=== PATIENT | male | born 1940 | race Caucasian/White ===

== ENCOUNTER 2023-06-26 17:40 | Inpatient (IN) ==
--- NOTE | 2023-06-26 20:00 | EKG ---
Test Reason : weakness Blood Pressure : */* mmHG Vent. Rate : 60 BPM Atrial Rate : 60 BPM P-R Int : 276 ms QRS Dur : 132 ms QT Int : 448 ms P-R-T Axes : * -55 73 degrees QTc Int : 448 ms Atrial-paced rhythm with prolonged AV conduction Left axis deviation Nonspecific intraventricular block Abnormal ECG No previous ECGs available Confirmed by Sachin Figueroa ([id number]) on 06/27/2023 8:13:50 AM Referred By: Confirmed By: Sachin Figueroa
[2023-06-26 20:05] LABS: LYMPHOCYTES # (AUTO) 0.1 X10^3/uL (1.3-2.9); MEAN CORPUSCULAR HGB CONC 33.8 g/dL (33.0-35.0); MONOCYTES # (AUTO) 0.3 x10^3/uL (0.3-0.8); MONOCYTES % (AUTO) 10.3 % (0.0-13.0); NEUTROPHILS # (AUTO) 2.5 x10^3/uL (2.2-4.8); RED CELL DISTRIBUTION WIDTH 17.7 % (11.6-16.5)
[2023-06-26 20:08] LABS: BASOPHILS % (AUTO) 0.1 % (0.2-1.0); EOSINOPHILS % (AUTO) 0.9 % (0.9-2.9); MEAN CORPUSCULAR VOLUME 94.6 fL (80.0-100.0); MEAN PLATELET VOLUME 6.5 fL (7.4-11.0); NEUTROPHILS % (AUTO) 83.7 % (42.0-75.0); PLATELET COUNT 152 X10^3/uL (150.0-450.0); RED BLOOD COUNT 2.02 X10^6/uL (4.7-6.0)
[2023-06-26 20:15] LABS: INR 1.22 (0.8-1.3)
[2023-06-26 20:22] LABS: ALANINE AMINOTRANSFERASE 43 Units/L (12-78); ALBUMIN 3.1 g/dL (3.4-5.0); ALKALINE PHOSPHATASE 64 Units/L (46-116); ASPARTATE AMINO TRANSFERASE 54 Units/L (15-37); BLOOD UREA NITROGEN 26 mg/dL (7-18); CALCIUM 7.4 mg/dL (8.5-10.1); CARBON DIOXIDE 32.4 mmol/L (21-32); CHLORIDE 94 mmol/L (98-107); COR CA(FOR HYPOALB) 8.1 mg/dL (8.5-10.1); COR NA(FOR HYPERGLY) 126 mmol/L (136-145); CREATINE KINASE 470 Units/L (39-308); CREATININE 1.07 mg/dL (0.70-1.30); GLUCOSE 111 mg/dL (65-99); POTASSIUM 4.1 mmol/L (3.5-5.1); SODIUM 126 mmol/L (136-145); TOTAL PROTEIN 5.7 g/dL (6.4-8.2); eGFR NON BLACK RACES > 60 (>60)
--- NOTE | 2023-06-26 20:23 | RAD ---
EXAM:CHEST, 1 VIEWHISTORY:WEAKNESS;COMPARISON:None. r.br.br.br obtained.FINDINGS:There are multiple EKG leads and wires seen overlying the patient. The patient is status post median sternotomy. There is a permanent pacemaker overlying the left chest wall with the proximal lead in the right atrium and distal lead in the right ventricle. The heart is normal in size. There is no focal infiltrate. There is no effusion. There is no pneumothorax. The osseous structures are intact. There is anterior cervical interbody fusion of 2 levels of the lower cervical spine and upper thoracic spine. There are surgical clips along the right greater than left neck area.IMPRESSION:No focal infiltrate or effusion.Permanent pacemaker in-situ.Status post median sternotomy.THIS IS AN ELECTRONICALLY VERIFIED FINAL LIXOOT2706/26/2023 8:20 PM - Electronically signed by Razia Juares MD
[2023-06-26 20:26] LABS: HEMATOCRIT 19.1 % (42.0-54.0); HEMOGLOBIN 6.5 g/dL (13.5-18.0)
--- NOTE | 2023-06-26 20:43 | DR.EXTPAIN ---
HPI Time seen Time Seen by Provider: 06/26/23 20:34 PCP Primary Care Physician: RONNIE Complaint/Symptoms Chief Complaint:: PATIENT'S FAMILY C/O PATIENT HAS HAD INCREASED WEAKNESS AND NEEDS A BLOOD TRANSFUSION. PATTINETS HGB NOTED TO BE 6.5 ON THIS DATE FROM PREVIOUS LAB WORK. PATIENT IS ALSO NOTED TO HAVE BILATERAL LOWER EXT EDEMA +4 PITTING. PATIENT IS NOTED TO BE PALE. COVID-19 Coronavirus risk:travel/contact w/high risk person: No Has patient experienced Coronavirus symptoms: No Nurses notes reviewed Nurses Notes Review: Yes Source History Provided: Patient and Family Member Mode of arrival Mode of Arrival: Wheelchair Timing Onset of Chief Complaint: 06/24/23 Context History of: None Associated signs and symptoms Associated Signs and Symptoms: Swelling PMH PMH Past Medical History: Yes Past Medical History: Alzheimers, Anemia, CHF, CVA, Dementia, Depression, GERD and Hypertension Past Medical History Comment: PROSTATE CA, THYROID CA, BLADDER CA Past Surgical History: Yes Surgical History: CABG/Valve Surgery, Cholecystectomy, Ectopic , Ortho Surgery and Thyroidectomy Past Surgical History Comment: PACE MAKER, WATCHMAN'S PROCEDURE, SHOULDER (BILATERAL), KNEE REPLACEMENT, BLADDER SURGERY TO REMOVE CA, Family History History of Family Medical Conditions: Yes Family Medical History: Diabetes Mellitus, [place], Coronary Artery Disease, Heart Failure and Hypertension Social History Does any household member use tobacco: No Alcohol Use: None Do you use any recreational Drugs:: No Lives With: Spouse Lives Where: Home Travel Risk Coronavirus risk:travel/contact w/high risk person: No Has patient experienced Coronavirus symptoms: No Infectious screening In the last 2 months have you had wt loss of >10#?: NO Have you had fever, night sweats or hemotysis?: No Have you traveled outside the country in the last 6 months?: No Isolation: Standard ROS Review of Systems Constitutional: See HPI and Weakness Cardiovascular: See HPI and Edema PE Vital Signs Vitals: Vital Signs Temperature 98.3 F Pulse Rate 60 Respiratory Rate 20 Blood Pressure 109/61 O2 Sat by Pulse Oximetry 100 General Limitations: No Limitations General Appearance: Alert and In No Apparent Distress Head Head Exam: Normal Inspection, Atraumatic and Normocephalic Eyes Eye exam: Normal Appearance, PERRL and EOMI ENT ENT Exam: Normal Exam Neck Neck Exam: Normal Inspection Chest Chest Inspection: Normal Inspection Respiratory Respiratory Exam: Normal Lung Sounds Bilat Cardiovascular Cardiovascular Exam: Regular Rate Abdominal Exam Abdominal Exam: Normal Inspection, Normal Bowel Sounds and Soft Extremities Extremities Exam: Full ROM and Edema Back Back Exam: Normal Inspection Neurological Neurological Exam: Alert, Oriented X3, CN II-XII Intact, Normal Gait and Reflexes Normal Psychiatric Psychiatric Exam: Normal Affect and Normal Mood Skin Skin Exam: Warm, Dry and Other (Ecchymosis posterior right thigh) COURSE Treatment Treatment: Labs, CXR, EKG, IVFs, blood transfusion, admission Reevaluation 1st: Improved ROR Labs Reviewed Laboratory Results Reviewed?: Yes 06/26/23 19:53 06/26/23 19:53 Laboratory: WBC 3.0 X10^3/uL (3.6-10.0) L 06/26/23 19:53 RBC 2.02 X10^6/uL (4.7-6.0) L 06/26/23 19:53 Hgb 6.5 g/dL (13.5-18.0) L* 06/26/23 19:53 Hct 19.1 % (42.0-54.0) L* 06/26/23 19:53 MCV 94.6 fL (80.0-100.0) 06/26/23 19:53 MCH 32.0 pg (27.0-34.0) 06/26/23 19:53 MCHC 33.8 g/dL (33.0-35.0) 06/26/23 19:53 RDW 17.7 % (11.6-16.5) H 06/26/23 19:53 Plt Count 152 X10^3/uL (150.0-450.0) 06/26/23 19:53 MPV 6.5 fL (7.4-11.0) L 06/26/23 19:53 Neut % (Auto) 83.7 % (42.0-75.0) H 06/26/23 19:53 Lymph % (Auto) 5.0 % (21.0-51.0) L 06/26/23 19:53 [place] % (Auto) 10.3 % (0.0-13.0) 06/26/23 19:53 Eos % (Auto) 0.9 % (0.9-2.9) 06/26/23 19:53 Baso % (Auto) 0.1 % (0.2-1.0) L 06/26/23 19:53 Neut # (Auto) 2.5 x10^3/uL (2.2-4.8) 06/26/23 19:53 Lymph # (Auto) 0.1 X10^3/uL (1.3-2.9) L 06/26/23 19:53 [place] # (Auto) 0.3 x10^3/uL (0.3-0.8) 06/26/23 19:53 Eos # (Auto) 0.0 x10^3/uL (0.0-0.2) 06/26/23 19:53 Baso # (Auto) 0.0 X10^3/uL (0.0-0.1) 06/26/23 19:53 Absolute Nucleated RBC 0.1 /100WBC 06/26/23 19:53 PT 15.2 SECONDS (11.8-14.3) 06/26/23 19:53 INR Target Range - 06/26/23 19:53 INR 1.22 (0.8-1.3) 06/26/23 19:53 APTT 67.7 SECONDS (22.9-36.5) H 06/26/23 19:53 PTT Comment - 06/26/23 19:53 Sodium 126 mmol/L (136-145) L 06/26/23 19:53 Corrected Sodium 126 mmol/L (136-145) L 06/26/23 19:53 Potassium 4.1 mmol/L (3.5-5.1) 06/26/23 19:53 Chloride 94 mmol/L (98-107) L 06/26/23 19:53 Carbon Dioxide 32.4 mmol/L (21-32) H 06/26/23 19:53 BUN 26 mg/dL (7-18) H 06/26/23 19:53 Creatinine 1.07 mg/dL (0.70-1.30) 06/26/23 19:53 Est GFR (MDRD) Af Amer > 60 (>60) 06/26/23 19:53 Est GFR (MDRD) Non-Af > 60 (>60) 06/26/23 19:53 Glucose 111 mg/dL (65-99) H 06/26/23 19:53 Calcium 7.4 mg/dL (8.5-10.1) L 06/26/23 19:53 Corrected Calcium 8.1 mg/dL (8.5-10.1) L 06/26/23 19:53 Total Bilirubin 0.60 mg/dL (0.2-1.0) 06/26/23 19:53 AST 54 Units/L (15-37) H 06/26/23 19:53 ALT 43 Units/L (12-78) 06/26/23 19:53 Alkaline Phosphatase 64 Units/L (46-116) 06/26/23 19:53 Creatine Kinase 470 Units/L (39-308) H 06/26/23 19:53 Troponin I High Sens 11.2 ng/L (4.0-60.0) 06/26/23 19:53 Total Protein 5.7 g/dL (6.4-8.2) L 06/26/23 19:53 Albumin 3.1 g/dL (3.4-5.0) L 06/26/23 19:53 Globulin 2.6 g/dL (2.5-4.5) 06/26/23 19:53 Albumin/Globulin Ratio 1.2 Ratio (1.1-2.1) 06/26/23 19:53 Stool Occult Blood Positive (NEGATIVE) A 06/26/23 20:35 Blood Type A POSITIVE 06/26/23 19:56 Antibody Screen Negative 06/26/23 19:53 XRAY XRAY Interpreted by: Radiologist Opioid Opioid Risk Tool Age (Ambrosio box if 16-45): No History of Preadolescent Sexual Abuse: No Total: 0 Total Score Risk Category: Low Risk Copyright: Tristin CLARK predicting aberrant behaviors Discharge Plan Diagnosis Discharge Problem: Anemia, Acute upper GI bleed, Generalized muscle weakness Discharge Plan Patient Disposition: ADMITTED INPATIENT Condition: Stable Prescriptions: No Action olanzapine [Zyprexa] 5 mg Tablet 5 mg PO QHS PRN (Reason: Agitation) dextromethorphan-guaifenesin [Robitussin-DM] 10-100 mg/5 mL Syrup 10 ml PO Q4-6H PRN aspirin [Aspir-81] 81 mg Tablet,Delayed Release (Dr/Ec) 81 mg PO QDAY simvastatin [Zocor] 40 mg Tablet 40 mg PO QHS levothyroxine [Synthroid] 75 mcg Tablet 75 mcg PO QDAY tamsulosin [Flomax] 0.4 mg Capsule 0.4 mg PO QHS pantoprazole [Protonix] 40 mg Tablet,Delayed Release (Dr/Ec) 40 mg PO QDAY ferrous sulfate 325 mg (65 mg iron) Tablet 325 mg PO QDAY Maalox 225-200 mg/5 mL Suspension 30 ml PO Q4H PRN ibuprofen [Motrin] 400 mg Tablet 400 mg PO Q8H furosemide [Lasix] 20 mg Tablet 20 mg PO QAM metoprolol succinate [Toprol XL] 25 mg Tablet Extended Release 24 Hr 12.5 mg PO QDAY oxybutynin chloride [Ditropan] 5 mg Tablet 10 mg PO QDAY ondansetron [Zofran ODT] 4 mg Tablet,Disintegrating 4 mg PO Q6H PRN sertraline [Zoloft] 50 mg Tablet 75 mg PO QDAY aripiprazole [Abilify] 5 mg Tablet 5 mg PO QDAY memantine [Namenda] 5 mg Tablet 5 mg PO BID acetaminophen [Tylenol] 325 mg Capsule 650 mg PO Q4H PRN magnesium hydroxide [Milk of Magnesia] 400 mg/5 mL Suspension 30 ml PO BID PRN Health Concerns: Post Hospitalization: new medications and changes needed to prevent readmission or further decline. Pt educated and given instructions on all concerns. Plan of Treatment: Continue with present treatment and follow up plan. Pt is to keep follow up appointment as instructed and take medications as ordered. Follow ups/Referrals Follow ups/Referrals: NFD,None [Primary Care Provider] - 3 days
[2023-06-26] MEDS ORDERED: NS 1,000 ML IV 1,000 ML ONE (21:14)
[2023-06-26] MEDS: NS 1,000 ML IV 1,000 ML IV SCH (21:30)
[2023-06-26] MEDS ORDERED: TYLENOL 325 MG TAB PO PRN (21:51)
[2023-06-26] MEDS ORDERED: BENADRYL INJ 50 MG VIAL IVP PRN (21:51)
[2023-06-26] MEDS ORDERED: TYLENOL SUPP 650 MG PR PRN (21:51)
[2023-06-26] MEDS ORDERED: NS 500 ML IV 500 ML IV ONE (21:51)
[2023-06-26 22:47] VITALS: BMI 20.9
[2023-06-27 07:04] LABS: BASOPHILS % (AUTO) 0 % (0.2-1.0); EOSINOPHILS # (AUTO) 0.1 x10^3/uL (0.0-0.2); EOSINOPHILS % (AUTO) 2.6 % (0.9-2.9); HEMATOCRIT 21.9 % (42.0-54.0); HEMOGLOBIN 7.5 g/dL (13.5-18.0); LYMPHOCYTES # (AUTO) 0.3 X10^3/uL (1.3-2.9); LYMPHOCYTES % (AUTO) 11.3 % (21.0-51.0); MEAN CORPUSCULAR HEMOGLOBIN 31.9 pg (27.0-34.0); MEAN CORPUSCULAR HGB CONC 34.2 g/dL (33.0-35.0); MEAN CORPUSCULAR VOLUME 93.3 fL (80.0-100.0); MEAN PLATELET VOLUME 6.4 fL (7.4-11.0); MONOCYTES # (AUTO) 0.4 x10^3/uL (0.3-0.8); MONOCYTES % (AUTO) 13.9 % (0.0-13.0); NEUTROPHILS # (AUTO) 1.9 x10^3/uL (2.2-4.8); NEUTROPHILS % (AUTO) 72.2 % (42.0-75.0); PLATELET COUNT 125 X10^3/uL (150.0-450.0); RED BLOOD COUNT 2.35 X10^6/uL (4.7-6.0); RED CELL DISTRIBUTION WIDTH 16.5 % (11.6-16.5); WHITE BLOOD COUNT 2.6 X10^3/uL (3.6-10.0)
[2023-06-27 07:13] LABS: ALANINE AMINOTRANSFERASE 33 Units/L (12-78); ALBUMIN 2.5 g/dL (3.4-5.0); ALKALINE PHOSPHATASE 54 Units/L (46-116); ASPARTATE AMINO TRANSFERASE 43 Units/L (15-37); BLOOD UREA NITROGEN 23 mg/dL (7-18); CARBON DIOXIDE 30.7 mmol/L (21-32); CHLORIDE 99 mmol/L (98-107); COR CA(FOR HYPOALB) 8.2 mg/dL (8.5-10.1); CREATININE 0.86 mg/dL (0.70-1.30); GLUCOSE 85 mg/dL (65-99); POTASSIUM 3.9 mmol/L (3.5-5.1); SODIUM 131 mmol/L (136-145); TOTAL PROTEIN 4.7 g/dL (6.4-8.2); eGFR NON BLACK RACES > 60 (>60)
[2023-06-27] MEDS: PEPCID 20 MG VIAL 20 MG in NS 50 ML IV 50 ML IV SCH ×2 (10:27→21:22)
[2023-06-27] MEDS: PROTONIX INJ 40 MG VIAL IVP SCH ×2 (10:27→21:22)
[2023-06-27] MEDS: NS 1,000 ML IV 1,000 ML IV SCH (11:00)
[2023-06-27] MEDS ORDERED: NS 250 ML IV 250 ML IV ONE (11:34)
--- NOTE | 2023-06-27 13:02 | DR.H&P ---
H&P - History & Physical for Day of: H&P Date: 06/26/23 - Chief Complaint Chief Complaint: WEAKNESS, FATIGUE, LOW HEMOGLOBIN - History of Present Illness History of Present Illness: IS A 83 YEAR OLD WHITE MALE, PATIENT OF . HE HAS A PMH OF ALZHEIMERS, ANEMIA, CHF, CVA, DEMENTIA, DEPRESSION, GERD, HTN, PROSTATE CANCER, THYROID CANCER, AND BLADDER CANCER. PAST SURGICAL HISTORY INCLUDES: CABG, CHOLECYSTECTOMY, THYROIDECTOMY, PACEMAKER, WATCHMANS PROCEDURE, BILATERAL SHOULDER SURGERY, KNEE REPLACEMENT, BLADDER SURGERY TO REMOVE CANCER. HE PRESENTED TO THE HOSPITAL WITH COMPLAINTS OF INCREASED WEAKNESS, FATIGUE, AND LOWER EXTREMITY EDEMA. ADDITIONALLY, PATIENT REPORTS THAT HE WAS INSTRUCTED TO COME TO THE HOSPITAL FOR FURTHER EVALUATION DUE TO HIS HEMOGLOBIN BEING 6.5 ON LABS THAT WERE OBTAINED EARLIER IN THE DAY. ON ARRIVAL TO THE HOSPITAL, HIS VITALS WERE: 98.3-60-20-100%-109/61. LABS WERE OBTAINED. WBC 3.0, RBC 2.02, HGB 6.5, HCT 19.1, PLT COUNT 152, SODIUM 126, POTASSIUM 4.1, CHLORIDE 94, BUN 26, CREATININE 1.07, GLUCOSE 111, CALCIUM 7.4, TOTAL BILI 0.60, AST 54, ALT 43, ALK PHOS 64, CREATINE KINASE 470, TROPONIN 11.2, TOTAL PROTEIN 5.7, ALBUMIN 3.1. STOOL WAS POSITIVE FOR OCCULT BLOOD. A CHEST XRAY WAS OBTAINED AND REVEALED: No focal infiltrate or effusion. Permanent pacemaker in-situ. Status post median sternotomy. EKG OBTAINED AND REVEALED: ATRIAL PACED RHYTHM WITH HR 60 BPM. DECISION WAS MADE TO ADMIT PATIENT TO THE HOSPITAL INPATIENT STATUS DUE TO ANEMIA, GI BLEED, HYPONATREMIA. ON ADMISSION, SHE WAS STARTED ON NORMAL SALINE AT 75 ML/HR, PEPCID 20MG IV Q12H, PROTONIX 40MG IV BID, TYLENOL 650MG AND BENADRYL 25MG IV PRN FOR BLOOD TRANSFUSIONS. WE WILL RESUME HIS HOME MEDICATIONS OF MILK OF MAG PRN, ROBITUSSIN PRN, ZYPREXA PRN, ZOFRAN PRN, SYNTHROID, FLOMAX, ZOCOR, DITROPAN, FERROUS SULFATE, ABILIFY, ZOLOFT, TOPROL XL, AND NAMENDA. WE TRANSFUSED TWO UNITS OF PACKED RED BLOOD CELLS. ON MORNING LABS, HIS HEMOGLOBIN HAD ONLY INCREASED TO 7.5. WE WILL TRANSFUSE TWO ADDITIONAL UNITS OF PACKED RED BLOOD CELLS. WE WILL CONSULT , GENERAL SURGEON, FOR POSSIBLE ENDOSCOPY. OTHERWISE, WE WILL FOLLOW UP WITH AM LABS AND CONTINUE TO MONITOR. TIME SPENT ON CLINICAL ASSESSMENT, REVIEWING LABS AND IMAGING, DECISION MAKING, AND DOCUMENTATION GREATER THAN 75 MINUTES. - Past Medical History Past Medical History: Hypertension, Alzheimers, Dementia, Depression, Anemia, CVA, GERD, CHF - Past Surgical History Surgical History: CABG/Valve Surgery, Cholecystectomy, Ortho Surgery, Thyroidectomy - Family History Family Medical History: Diabetes Mellitus, Cancer, Hypertension - Social History Does patient currently use any type of tobacco product: No Have you used tobacco products in the last 12 months: No Type of Tobacco Use: None Does any household member use tobacco: No Alcohol Use: None Drug Use: None - Review of Systems Constitutional: Weakness Eyes: No Symptoms Reported ENT: No Symptoms Reported Respiratory: No Symptoms Reported Cardiovascular: Edema (BLE 2+ ) Gastrointestinal: No Symptoms Reported Genitourinary: No Symptoms Reported Musculoskeletal: No Symptoms Reported Skin: No Symptoms Reported Neurological: Weakness - Physical Exam Vital Signs: Vital Signs Temperature 97.7 F Pulse Rate 62 Pulse Rate 63 Pulse Rate 60 Pulse Rate 62 Pulse Rate 62 Pulse Rate 61 Pulse Rate 61 Pulse Rate 61 Pulse Rate 59 Pulse Rate 60 Respiratory Rate 12 Respiratory Rate 12 Respiratory Rate 11 Respiratory Rate 12 Respiratory Rate 15 Respiratory Rate 12 Respiratory Rate 10 Respiratory Rate 11 Respiratory Rate 11 Respiratory Rate 13 Blood Pressure 99/57 Blood Pressure 102/64 Blood Pressure 106/61 Blood Pressure 101/60 Blood Pressure 103/61 Blood Pressure 106/59 Blood Pressure 97/60 Blood Pressure 116/61 Blood Pressure 103/58 Blood Pressure 110/61 O2 Sat by Pulse Oximetry 100 O2 Sat by Pulse Oximetry 100 O2 Sat by Pulse Oximetry 100 O2 Sat by Pulse Oximetry 100 O2 Sat by Pulse Oximetry 98 O2 Sat by Pulse Oximetry 100 O2 Sat by Pulse Oximetry 100 O2 Sat by Pulse Oximetry 100 O2 Sat by Pulse Oximetry 100 O2 Sat by Pulse Oximetry 100 Oriented: Normal Eyes: Normal Ear: Normal Nose: Normal Throat: Normal Respiratory: Diminished Throughout Cardiovascular: Edema (BILATERAL LOWER EXTREMITY 2+ PITTING EDEMA ) : Normal Auscultation: Bowel Sounds: Normal Palpation: Normal Tenderness: Normal Skin: Normal Musculoskeletal: Normal Psychiatric: Normal Mood Description: Calm Affect: Normal Speech Pattern: Clear - Assessment/Plan (1) Anemia Qualifiers: Anemia type: iron deficiency Iron deficiency anemia type: chronic blood loss Qualified Code(s): D50.0 - Iron deficiency anemia secondary to blood loss (chronic) Status: Acute Plan: ADMIT, TRANSFUSE PACKED RED BLOOD CELLS, CONSULT GI, NORMAL SALINE AT 75 ML/HR, PEPCID 20MG IV Q12H, PROTONIX 40MG IV BID, TYLENOL 650MG AND BENADRYL 25MG IV PRN FOR BLOOD TRANSFUSIONS. RESUME HOME MEDS (2) Acute upper GI bleed Status: Acute (3) Generalized muscle weakness Status: Acute (4) Dementia Qualifiers: Dementia type: Alzheimer's Alzheimer's disease onset: unspecified onset Dementia severity: unspecified severity Dementia behavioral or psychological symptom: unspecified whether behavioral, psychotic, or mood disturbance or anxiety Qualified Code(s): G30.9 - Alzheimer's disease, unspecified; F02.80 - Dementia in other diseases classified elsewhere, unspecified severity, without behavioral disturbance, psychotic disturbance, mood disturbance, and anxiety Status: Chronic Plan: RESUME NAMENDA (5) Depression Qualifiers: Depression Type: major depressive disorder Major depression recurrence: recurrent Active/Remission status: remission status unspecified Qualified Code(s): F33.9 - Major depressive disorder, recurrent, unspecified Status: Chronic Plan: RESUME ZYPREXA AND ABILIFY (6) Hypertension Qualifiers: Hypertension type: primary hypertension Qualified Code(s): I10 - Essential (primary) hypertension Status: Chronic Plan: RESUME TOPROL (7) Hypothyroidism Qualifiers: Hypothyroidism type: acquired Qualified Code(s): E03.9 - Hypothyroidism, unspecified Status: Chronic Plan: RESUME SYNTHROID (8) History of prostate cancer Status: Acute Plan: RESUME FLOMAX AND DITROPAN (9) Hyperlipidemia Qualifiers: Hyperlipidemia type: mixed hyperlipidemia Qualified Code(s): E78.2 - Mixed hyperlipidemia Status: Acute Plan: RESUME ZOCOR - Allergies Allergies/Adverse Reactions: Allergies Allergy/AdvReac Type Severity Reaction Status Date / Time No Known Allergies Allergy Verified 06/26/23 22:29 - Medications Home Medications: Home Medications Medication Instructions Recorded Confirmed acetaminophen 325 mg capsule 650 mg PO Q4H PRN 06/26/23 06/26/23 (Tylenol) aluminum-magnesium hydroxide 225 30 ml PO Q4H PRN 06/26/23 06/26/23 mg-200 mg/5 mL oral suspension aripiprazole 5 mg tablet (Abilify) 5 mg PO QDAY 06/26/23 06/26/23 aspirin 81 mg tablet,delayed 81 mg PO QDAY 06/26/23 06/26/23 release dextromethorphan-guaifenesin 10 10 ml PO Q4-6H PRN 06/26/23 06/26/23 mg-100 mg/5 mL oral syrup ferrous sulfate 325 mg (65 mg 325 mg PO QDAY 06/26/23 06/26/23 iron) tablet furosemide 20 mg tablet (Lasix) 20 mg PO QAM 06/26/23 06/26/23 ibuprofen 400 mg tablet 400 mg PO Q8H 06/26/23 06/26/23 levothyroxine 75 mcg tablet 75 mcg PO QDAY 06/26/23 06/26/23 (Synthroid) magnesium hydroxide 400 mg/5 mL 30 ml PO BID PRN 06/26/23 06/26/23 oral suspension (Milk of [place]) memantine 5 mg tablet (Namenda) 5 mg PO BID 06/26/23 06/26/23 metoprolol succinate 25 mg 12.5 mg PO QDAY 06/26/23 06/26/23 tablet,extended release 24 hr (Toprol XL) olanzapine 5 mg tablet (Zyprexa) 5 mg PO QHS PRN Agitation 06/26/23 06/26/23 ondansetron 4 mg disintegrating 4 mg PO Q6H PRN 06/26/23 06/26/23 tablet oxybutynin chloride 5 mg tablet 10 mg PO QDAY 06/26/23 06/26/23 pantoprazole 40 mg tablet,delayed 40 mg PO QDAY 06/26/23 06/26/23 release (Protonix) sertraline 50 mg tablet (Zoloft) 75 mg PO QDAY 06/26/23 06/26/23 simvastatin 40 mg tablet (Zocor) 40 mg PO QHS 06/26/23 06/26/23 tamsulosin 0.4 mg capsule (Flomax) 0.4 mg PO QHS 06/26/23 06/26/23
[2023-06-27] MEDS ORDERED: ZOFRAN ODT PO PRN (14:17)
[2023-06-27] MEDS ORDERED: MILK OF MAGNESIA PO PRN (14:17)
[2023-06-27] MEDS ORDERED: ROBITUSSIN DM PO PRN (14:17)
[2023-06-27] MEDS: ABILIFY PO SCH (14:30)
[2023-06-27] MEDS ORDERED: ASPIRIN EC 81 MG PO SCH (15:00)
[2023-06-27] MEDS: DITROPAN TAB 5 MG PO SCH (15:00)
[2023-06-27] MEDS: FERROUS GLUCONATE PO SCH (15:00)
[2023-06-27] MEDS ORDERED: TOPROL XL PO SCH (15:00)
[2023-06-27] MEDS: ZOLOFT PO SCH (18:42)
[2023-06-27 20:31] LABS: HEMATOCRIT 27.7 % (42.0-54.0); HEMOGLOBIN 9.4 g/dL (13.5-18.0)
[2023-06-27] MEDS: NAMENDA TAB 10 MG PO SCH (21:21)
[2023-06-27] MEDS: FLOMAX PO SCH (21:21)
[2023-06-27] MEDS: ZOCOR TAB 40 MG PO SCH (21:22)
[2023-06-27] MEDS ORDERED: NS 50 ML IV 50 ML IV ONE (21:29)
[2023-06-28] MEDS: NS 1,000 ML IV 1,000 ML IV SCH ×2 (04:31→17:00)
[2023-06-28 05:34] LABS: BASOPHILS % (AUTO) 0.1 % (0.2-1.0); EOSINOPHILS # (AUTO) 0.1 x10^3/uL (0.0-0.2); HEMATOCRIT 27.3 % (42.0-54.0); HEMOGLOBIN 9.3 g/dL (13.5-18.0); LYMPHOCYTES # (AUTO) 0.3 X10^3/uL (1.3-2.9); LYMPHOCYTES % (AUTO) 10.9 % (21.0-51.0); MEAN CORPUSCULAR HEMOGLOBIN 31.4 pg (27.0-34.0); MEAN CORPUSCULAR VOLUME 92.6 fL (80.0-100.0); MEAN PLATELET VOLUME 6.5 fL (7.4-11.0); MONOCYTES # (AUTO) 0.3 x10^3/uL (0.3-0.8); MONOCYTES % (AUTO) 10.3 % (0.0-13.0); NEUTROPHILS # (AUTO) 2.1 x10^3/uL (2.2-4.8); NEUTROPHILS % (AUTO) 76.7 % (42.0-75.0); PLATELET COUNT 109 X10^3/uL (150.0-450.0); RED BLOOD COUNT 2.95 X10^6/uL (4.7-6.0); WHITE BLOOD COUNT 2.7 X10^3/uL (3.6-10.0)
[2023-06-28 05:48] LABS: ALANINE AMINOTRANSFERASE 27 Units/L (12-78); ALBUMIN 2.4 g/dL (3.4-5.0); ALKALINE PHOSPHATASE 50 Units/L (46-116); ASPARTATE AMINO TRANSFERASE 37 Units/L (15-37); BLOOD UREA NITROGEN 17 mg/dL (7-18); CALCIUM 6.7 mg/dL (8.5-10.1); CHLORIDE 99 mmol/L (98-107); CREATININE 0.69 mg/dL (0.70-1.30); GLUCOSE 73 mg/dL (65-99); POTASSIUM 3.7 mmol/L (3.5-5.1); SODIUM 130 mmol/L (136-145); TOTAL PROTEIN 4.3 g/dL (6.4-8.2); eGFR NON BLACK RACES > 60 (>60)
[2023-06-28] MEDS ORDERED: CONSULT PHARMACY - POTASSIUM & MAGNESIUM XX SCH ×2 (07:00)
[2023-06-28] MEDS ORDERED: SYNTHROID 75 mcg TAB PO SCH (09:00)
[2023-06-28] MEDS: ZOLOFT PO SCH (09:45)
[2023-06-28] MEDS: DITROPAN TAB 5 MG PO SCH (09:45)
[2023-06-28] MEDS: NAMENDA TAB 10 MG PO SCH ×2 (09:45→21:07)
[2023-06-28] MEDS: FERROUS GLUCONATE PO SCH (09:45)
[2023-06-28] MEDS: PROTONIX INJ 40 MG VIAL IVP SCH ×2 (09:45→21:07)
[2023-06-28] MEDS: PEPCID 20 MG VIAL 20 MG in NS 50 ML IV 50 ML IV SCH ×2 (09:45→21:06)
[2023-06-28] MEDS: ABILIFY PO SCH (09:45)
[2023-06-28] MEDS: K-RIDER 10 MEQ/NS 100 ML 10 MEQ/100 ML BAG IV SCH ×2 (10:00→11:00)
[2023-06-28 10:14] LABS: T4 (THYROXINE) 3.5 ug/dL (4.7-13.3)
--- NOTE | 2023-06-28 17:55 | PCM.PROG ---
Progress Note Progress Note for Day of Date of Exam: 06/28/23 Subjective Subjective: IS A 83 YEAR OLD WHITE MALE, PATIENT OF , ER ADMISSION WITH ACUTE GI BLEED. WHEN HE PRESENTED TO THE HOSPITAL WITH COMPLAINTS OF INCREASED WEAKNESS, FATIGUE, AND LOWER EXTREMITY EDEMA, PT HGB WAS 6.5. PT HAS POSITIVE OCCULT STOOL, SP TRANSFUSION PRBC. SR HAMMOND HAS BEEN CONSULTED FOR GI EVALUATION. PT IS CURRENTLY ON IV PROTONIX BID. HGB AT 9.3 THIS MORNING. PT DENIES ANY CHEST PAIN OR SOB THIS MORNING AT REST. PT DENIES ANY N/V/D THIS MORNING, BUT REPORTS HE HAS NOT ATE. LABS AND DIAGNOSTIC TESTS REVIEWED WITH PT AND FAMILY AT BEDSIDE. HE HAS A PMH OF ALZHEIMERS, ANEMIA, CHF, CVA, DEMENTIA, DEPRESSION, GERD, HTN, PROSTATE CANCER, THYROID CANCER, AND BLADDER CANCER. PAST SURGICAL HISTORY INCLUDES: CABG, CHOLECYSTECTOMY, THYROIDECTOMY, PACEMAKER, WATCHMANS PROCEDURE, BILATERAL SHOULDER SURGERY, KNEE REPLACEMENT, BLADDER SURGERY TO REMOVE CANCER. Past Medical Family Social History Allergies: Allergies No Known Allergies Allergy (Verified 06/26/23 22:29) Vital Signs and I&O's Vital Signs: Vital Signs Temperature 97.7 F Temperature 98 F Pulse Rate 60 Pulse Rate 60 Pulse Rate 61 Pulse Rate 60 Pulse Rate 66 Pulse Rate 60 Pulse Rate 60 Pulse Rate 60 Respiratory Rate 22 Respiratory Rate 11 Respiratory Rate 15 Respiratory Rate 17 Respiratory Rate 15 Respiratory Rate 18 Respiratory Rate 23 Blood Pressure 101/66 Blood Pressure 123/64 Blood Pressure 110/61 O2 Sat by Pulse Oximetry 100 O2 Sat by Pulse Oximetry 100 O2 Sat by Pulse Oximetry 100 O2 Sat by Pulse Oximetry 99 O2 Sat by Pulse Oximetry 99 O2 Sat by Pulse Oximetry 100 O2 Sat by Pulse Oximetry 100 O2 Sat by Pulse Oximetry 98 Intake and Output: Intake & Output 06/26/23 06/27/23 06/28/23 06/29/23 11:59 11:59 11:59 11:59 Intake Total 1555 / 1555 2874 / 2874 918 / 918 Output Total 600 / 600 650 / 650 Balance 1555 / 1555 2274 / 2274 268 / 268 Physical Exam Oriented: Normal Eyes: Normal Ear: Normal Nose: Normal Throat: Normal Respiratory: Diminished Cardiovascular: Edema (BILATERAL LOWER EXTREMITY 2+ PITTING EDEMA ) and Other (PACEMAKER PRESENT) : Normal Auscultation: Bowel Sounds: Normal Tenderness: Normal Skin: Normal Musculoskeletal: Normal Psychiatric: Normal Mood Description: Calm Affect: Normal Speech Pattern: Clear and Appropriate Laboratory and Diagnostics 06/28/23 04:51 06/28/23 04:51 Labs: Laboratory WBC 2.7 X10^3/uL (3.6-10.0) L 06/28/23 04:51 RBC 2.95 X10^6/uL (4.7-6.0) L 06/28/23 04:51 Hgb 9.3 g/dL (13.5-18.0) L 06/28/23 04:51 Hct 27.3 % (42.0-54.0) L 06/28/23 04:51 MCV 92.6 fL (80.0-100.0) 06/28/23 04:51 MCH 31.4 pg (27.0-34.0) 06/28/23 04:51 MCHC 34.0 g/dL (33.0-35.0) 06/28/23 04:51 RDW 16.0 % (11.6-16.5) 06/28/23 04:51 Plt Count 109 X10^3/uL (150.0-450.0) L 06/28/23 04:51 MPV 6.5 fL (7.4-11.0) L 06/28/23 04:51 Neut % (Auto) 76.7 % (42.0-75.0) H 06/28/23 04:51 Lymph % (Auto) 10.9 % (21.0-51.0) L 06/28/23 04:51 [place] % (Auto) 10.3 % (0.0-13.0) 06/28/23 04:51 Eos % (Auto) 2.0 % (0.9-2.9) 06/28/23 04:51 Baso % (Auto) 0.1 % (0.2-1.0) L 06/28/23 04:51 Neut # (Auto) 2.1 x10^3/uL (2.2-4.8) L 06/28/23 04:51 Lymph # (Auto) 0.3 X10^3/uL (1.3-2.9) L 06/28/23 04:51 [place] # (Auto) 0.3 x10^3/uL (0.3-0.8) 06/28/23 04:51 Eos # (Auto) 0.1 x10^3/uL (0.0-0.2) 06/28/23 04:51 Baso # (Auto) 0.0 X10^3/uL (0.0-0.1) 06/28/23 04:51 Absolute Nucleated RBC 0.0 /100WBC 06/28/23 04:51 PT 15.2 SECONDS (11.8-14.3) 06/26/23 19:53 INR Target Range - 06/26/23 19:53 INR 1.22 (0.8-1.3) 06/26/23 19:53 APTT 67.7 SECONDS (22.9-36.5) H 06/26/23 19:53 PTT Comment - 06/26/23 19:53 Sodium 130 mmol/L (136-145) L 06/28/23 04:51 Corrected Sodium TNP 06/28/23 04:51 Potassium 3.7 mmol/L (3.5-5.1) 06/28/23 04:51 Chloride 99 mmol/L (98-107) 06/28/23 04:51 Carbon Dioxide 29.0 mmol/L (21-32) 06/28/23 04:51 BUN 17 mg/dL (7-18) 06/28/23 04:51 Creatinine 0.69 mg/dL (0.70-1.30) L 06/28/23 04:51 Est GFR (MDRD) Af Amer > 60 (>60) 06/28/23 04:51 Est GFR (MDRD) Non-Af > 60 (>60) 06/28/23 04:51 Glucose 73 mg/dL (65-99) 06/28/23 04:51 Calcium 6.7 mg/dL (8.5-10.1) L 06/28/23 04:51 Corrected Calcium 8.0 mg/dL (8.5-10.1) L 06/28/23 04:51 Magnesium 2.0 mg/dL (2.0-2.9) 06/28/23 04:51 Total Bilirubin 0.90 mg/dL (0.2-1.0) 06/28/23 04:51 AST 37 Units/L (15-37) 06/28/23 04:51 ALT 27 Units/L (12-78) 06/28/23 04:51 Alkaline Phosphatase 50 Units/L (46-116) 06/28/23 04:51 Creatine Kinase 470 Units/L (39-308) H 06/26/23 19:53 Troponin I High Sens 11.2 ng/L (4.0-60.0) 06/26/23 19:53 Total Protein 4.3 g/dL (6.4-8.2) L 06/28/23 04:51 Albumin 2.4 g/dL (3.4-5.0) L 06/28/23 04:51 Globulin 1.9 g/dL (2.5-4.5) L 06/28/23 04:51 Albumin/Globulin Ratio 1.3 Ratio (1.1-2.1) 06/28/23 04:51 Thyroxine (T4) 3.5 ug/dL (4.7-13.3) L 06/28/23 04:51 TSH 3rd Generation 40.339 uIU/mL (0.358-3.74) H 06/28/23 04:51 Stool Occult Blood Positive (NEGATIVE) A 06/26/23 20:35 Stl Occult Blood (IFOB) Positive (NEGATIVE) A 06/28/23 09:35 Blood Type A POSITIVE 06/26/23 19:56 Antibody Screen Negative 06/26/23 19:53 Crossmatch See Detail 06/26/23 19:53 Plan (1) Anemia: Status: Acute Qualifiers: Anemia type: iron deficiency Iron deficiency anemia type: chronic blood loss Qualified Code(s): D50.0 - Iron deficiency anemia secondary to blood loss (chronic) Plan: ADMIT, TRANSFUSE PACKED RED BLOOD CELLS, CONSULT GI, NORMAL SALINE AT 75 ML/HR, PEPCID 20MG IV Q12H, PROTONIX 40MG IV BID, TYLENOL 650MG AND BENADRYL 25MG IV PRN FOR BLOOD TRANSFUSIONS. HOME MEDICATIONS HAVE BEEN RESUMED. (2) Acute upper GI bleed: Status: Acute (3) Generalized muscle weakness: Status: Acute (4) Dementia: Status: Chronic Qualifiers: Dementia type: Alzheimer's Alzheimer's disease onset: unspecified onset Dementia severity: unspecified severity Dementia behavioral or psychological symptom: unspecified whether behavioral, psychotic, or mood disturbance or anxiety Qualified Code(s): G30.9 - Alzheimer's disease, unspecified; F02.80 - Dementia in other diseases classified elsewhere, unspecified severity, without b ehavioral disturbance, psychotic disturbance, mood disturbance, and anxiety Plan: RESUME NAMENDA (5) Depression: Status: Chronic Qualifiers: Depression Type: major depressive disorder Major depression recurrence: recurrent Active/Remission status: remission status unspecified Qualified Code(s): F33.9 - Major depressive disorder, recurrent, unspecified Plan: RESUME ZYPREXA AND ABILIFY (6) Hypertension: Status: Chronic Qualifiers: Hypertension type: primary hypertension Qualified Code(s): I10 - Essential (primary) hypertension Plan: RESUME TOPROL (7) Hypothyroidism: Status: Chronic Qualifiers: Hypothyroidism type: acquired Qualified Code(s): E03.9 - Hypothyroidism, unspecified Plan: RESUME SYNTHROID (8) History of prostate cancer: Status: Acute Plan: RESUME FLOMAX AND DITROPAN (9) Hyperlipidemia: Status: Acute Qualifiers: Hyperlipidemia type: mixed hyperlipidemia Qualified Code(s): E78.2 - Mixed hyperlipidemia Plan: RESUME ZOCOR
[2023-06-28] MEDS: FLOMAX PO SCH (21:07)
[2023-06-28] MEDS: ZOCOR TAB 40 MG PO SCH (21:07)
--- NOTE | 2023-06-29 00:45 | RAD ---
EXAM:CHEST, 1 VIEWHISTORY:SOB;COMPARISON:None. r.br.br obtained.FINDINGS:The patient is status post median sternotomy. There is a permanent pacemaker overlying the left chest wall with the proximal lead in the right atrium and distal lead in the right ventricle. There are multiple EKG leads and wires seen overlying the patient. The heart is normal in size. There is minimal blunting of the right costophrenic angle consistent with a minimal right pleural effusion. There is asmall focal patchy alveolar infiltrate of the right upper lobe. There is no pneumothorax. The osseous structures are intact. There is anterior cervical interbody fusion of 2 levels of the lower cervical and upper thoracic spine.IMPRESSION:Small focal patchy alveolar infiltrate of the periphery of the right upper lobe.THIS IS AN ELECTRONICALLY VERIFIED FINAL [id number]/29/2023 12:41 AM - Electronically signed by Razia Juares MD
[2023-06-29 05:26] LABS: BASOPHILS % (AUTO) 0 % (0.2-1.0); MEAN PLATELET VOLUME 6.5 fL (7.4-11.0)
[2023-06-29 05:29] LABS: ALANINE AMINOTRANSFERASE 27 Units/L (12-78); ALBUMIN 2.4 g/dL (3.4-5.0); ALKALINE PHOSPHATASE 54 Units/L (46-116); ASPARTATE AMINO TRANSFERASE 37 Units/L (15-37); BLOOD UREA NITROGEN 14 mg/dL (7-18); CARBON DIOXIDE 26.6 mmol/L (21-32); CHLORIDE 101 mmol/L (98-107); COR CA(FOR HYPOALB) 8.3 mg/dL (8.5-10.1); CREATININE 0.69 mg/dL (0.70-1.30); EOSINOPHILS # (AUTO) 0.1 x10^3/uL (0.0-0.2); EOSINOPHILS % (AUTO) 1.6 % (0.9-2.9); GLUCOSE 75 mg/dL (65-99); HEMATOCRIT 28.6 % (42.0-54.0); HEMOGLOBIN 9.8 g/dL (13.5-18.0); LYMPHOCYTES # (AUTO) 0.3 X10^3/uL (1.3-2.9); LYMPHOCYTES % (AUTO) 9.5 % (21.0-51.0); MEAN CORPUSCULAR HEMOGLOBIN 31.8 pg (27.0-34.0); MEAN CORPUSCULAR HGB CONC 34.3 g/dL (33.0-35.0); MEAN CORPUSCULAR VOLUME 92.4 fL (80.0-100.0); MONOCYTES # (AUTO) 0.3 x10^3/uL (0.3-0.8); MONOCYTES % (AUTO) 9.3 % (0.0-13.0); NEUTROPHILS # (AUTO) 2.5 x10^3/uL (2.2-4.8); NEUTROPHILS % (AUTO) 79.6 % (42.0-75.0); PLATELET COUNT 105 X10^3/uL (150.0-450.0); RED CELL DISTRIBUTION WIDTH 16.2 % (11.6-16.5); SODIUM 134 mmol/L (136-145); TOTAL PROTEIN 4.5 g/dL (6.4-8.2); WHITE BLOOD COUNT 3.1 X10^3/uL (3.6-10.0); eGFR NON BLACK RACES > 60 (>60)
[2023-06-29] MEDS: SYNTHROID 125 mcg TAB PO SCH (05:48)
[2023-06-29] MEDS: NS 1,000 ML IV 1,000 ML IV SCH ×2 (05:51→21:30)
[2023-06-29] MEDS ORDERED: NS 1,000 ML IV 1,000 ML ONE (11:04)
[2023-06-29] MEDS ORDERED: DIPRIVAN VIAL 20 ML ONE (11:06)
--- NOTE | 2023-06-29 11:33 | RAD ---
EXAM:CHEST, 1 VIEWHISTORY:SOB;COMPARISON:06/28/2023 and other studiesTECHNIQUE:CHEST, 1 VIEWFINDINGS:Lines and tubes: Left pacemaker with leads in satisfactory positionMediastinum:Median sternotomy wires are present. The cardiomediastinal silhouette is within normal limits for size and contour.Pulmonary vasculature:No pulmonary vascular congestionLung mak: No suspicious airspace opacities.Pleura:There is blunting of both costophrenic angles. No pneumothorax.Bones and soft tissues:No acute osseous or soft tissue abnormality.IMPRESSION:1. Bilateral costophrenic angle blunting may indicate pleural effusions.THIS IS AN ELECTRONICALLY VERIFIED FINAL [id number]/29/2023 11:29 AM - Electronically signed by Wali Xavier MD
[2023-06-29] MEDS: ABILIFY PO SCH (12:34)
[2023-06-29] MEDS: ZOLOFT PO SCH (12:35)
[2023-06-29] MEDS: DITROPAN TAB 5 MG PO SCH (12:35)
[2023-06-29] MEDS: FERROUS GLUCONATE PO SCH (12:35)
[2023-06-29] MEDS: NAMENDA TAB 10 MG PO SCH ×2 (12:35→20:13)
[2023-06-29] MEDS: PEPCID 20 MG VIAL 20 MG in NS 50 ML IV 50 ML IV SCH ×2 (13:00→20:18)
[2023-06-29] MEDS: PROTONIX INJ 40 MG VIAL IVP SCH ×2 (13:01→20:15)
--- NOTE | 2023-06-29 14:17 | PCM.PROG ---
Progress Note Progress Note for Day of Date of Exam: 06/29/23 Subjective Subjective: IS A 83 YEAR OLD WHITE MALE, PATIENT OF , ER ADMISSION WITH ACUTE GI BLEED. WHEN HE PRESENTED TO THE HOSPITAL WITH COMPLAINTS OF INCREASED WEAKNESS, FATIGUE, AND LOWER EXTREMITY EDEMA, PT HGB WAS 6.5. PT HAS POSITIVE OCCULT STOOL, SP TRANSFUSION 4 PRBC[address] SR MANISH HAS BEEN CONSULTED FOR GI EVALUATION, PT IS NPO FOR EGD. PT IS CURRENTLY ON IV PROTONIX BID. HGB AT 9.8 THIS MORNING. PT DENIES ANY CHEST PAIN OR SOB THIS MORNING AT REST. PT DENIES ANY N/V/D THIS MORNING, BUT REPORTS HE HAS NOT ATE. LABS AND DIAGNOSTIC TESTS REVIEWED WITH PT. PT BP 112/65 AND HE HAD BEEN ON SUPPLEMENTAL O2 SINCE ADMISSION. PT DENIES ANY SOB AT REST AND REPORTS HE DOES NOT USE HOME O2. HE HAS A PMH OF ALZHEIMERS, ANEMIA, CHF, CVA, DEMENTIA, DEPRESSION, GERD, HTN, PROSTATE CANCER, THYROID CANCER, AND BLADDER CANCER. PAST SURGICAL HISTORY INCLUDES: CABG, CHOLECYSTECTOMY, THYROIDECTOMY, PACEMAKER, WATCHMANS PROCEDURE, BILATERAL SHOULDER SURGERY, KNEE REPLACEMENT, BLADDER SURGERY TO REMOVE CANCER. Past Medical Family Social History Allergies: Allergies No Known Allergies Allergy (Verified 06/26/23 22:29) Vital Signs and I&O's Vital Signs: Vital Signs Temperature 97.7 F Pulse Rate 61 Pulse Rate 63 Pulse Rate 60 Pulse Rate 63 Pulse Rate 60 Pulse Rate 60 Pulse Rate 61 Pulse Rate 60 Pulse Rate 60 Pulse Rate 60 Pulse Rate 60 Respiratory Rate 13 Respiratory Rate 19 Respiratory Rate 15 Respiratory Rate 12 Respiratory Rate 9 Respiratory Rate 10 Respiratory Rate 9 Respiratory Rate 10 Respiratory Rate 10 Respiratory Rate 10 Blood Pressure 112/65 Blood Pressure 116/80 Blood Pressure 124/79 Blood Pressure 104/68 Blood Pressure 112/70 Blood Pressure 91/57 Blood Pressure 84/52 Blood Pressure 117/69 Blood Pressure 113/69 Blood Pressure 103/67 O2 Sat by Pulse Oximetry 100 O2 Sat by Pulse Oximetry 97 O2 Sat by Pulse Oximetry 93 O2 Sat by Pulse Oximetry 100 O2 Sat by Pulse Oximetry 100 O2 Sat by Pulse Oximetry 97 O2 Sat by Pulse Oximetry 96 O2 Sat by Pulse Oximetry 98 O2 Sat by Pulse Oximetry 99 O2 Sat by Pulse Oximetry 99 O2 Sat by Pulse Oximetry 99 Intake and Output: Intake & Output 11/08/23 06/28/23 06/29/23 06/30/23 11:59 11:59 11:59 11:59 Intake Total 1555 / 1555 2874 / 2874 2196 / 2196 Output Total 600 / 600 1400 / 1400 Balance 1555 / 1555 2274 / 2274 796 / 796 Physical Exam Oriented: Normal Eyes: Normal Ear: Normal Nose: Normal Throat: Normal Respiratory: Diminished Cardiovascular: Edema (BILATERAL LOWER EXTREMITY 2+ PITTING EDEMA ) and Other (PACEMAKER PRESENT) : Normal Auscultation: Bowel Sounds: Normal Palpation: Normal Tenderness: Normal Skin: Decreased Turgur Musculoskeletal: Motor Deficit (DIFFUSE WEAKNESS) Psychiatric: Normal Mood Description: Calm Affect: Normal Speech Pattern: Clear and Appropriate Laboratory and Diagnostics 06/29/23 04:34 06/29/23 04:34 Labs: Laboratory WBC 3.1 X10^3/uL (3.6-10.0) L 06/29/23 04:34 RBC 3.10 X10^6/uL (4.7-6.0) L 06/29/23 04:34 Hgb 9.8 g/dL (13.5-18.0) L 06/29/23 04:34 Hct 28.6 % (42.0-54.0) L 06/29/23 04:34 MCV 92.4 fL (80.0-100.0) 06/29/23 04:34 MCH 31.8 pg (27.0-34.0) 06/29/23 04:34 MCHC 34.3 g/dL (33.0-35.0) 06/29/23 04:34 RDW 16.2 % (11.6-16.5) 06/29/23 04:34 Plt Count 105 X10^3/uL (150.0-450.0) L 06/29/23 04:34 MPV 6.5 fL (7.4-11.0) L 06/29/23 04:34 Neut % (Auto) 79.6 % (42.0-75.0) H 06/29/23 04:34 Lymph % (Auto) 9.5 % (21.0-51.0) L 06/29/23 04:34 [place] % (Auto) 9.3 % (0.0-13.0) 06/29/23 04:34 Eos % (Auto) 1.6 % (0.9-2.9) 06/29/23 04:34 Baso % (Auto) 0 % (0.2-1.0) L 06/29/23 04:34 Neut # (Auto) 2.5 x10^3/uL (2.2-4.8) 06/29/23 04:34 Lymph # (Auto) 0.3 X10^3/uL (1.3-2.9) L 06/29/23 04:34 [place] # (Auto) 0.3 x10^3/uL (0.3-0.8) 06/29/23 04:34 Eos # (Auto) 0.1 x10^3/uL (0.0-0.2) 06/29/23 04:34 Baso # (Auto) 0.0 X10^3/uL (0.0-0.1) 06/29/23 04:34 Absolute Nucleated RBC 0.0 /100WBC 06/29/23 04:34 PT 15.2 SECONDS (11.8-14.3) 06/26/23 19:53 INR Target Range - 06/26/23 19:53 INR 1.22 (0.8-1.3) 06/26/23 19:53 APTT 67.7 SECONDS (22.9-36.5) H 06/26/23 19:53 PTT Comment - 06/26/23 19:53 Sodium 134 mmol/L (136-145) L 06/29/23 04:34 Corrected Sodium TNP 06/29/23 04:34 Potassium 4.0 mmol/L (3.5-5.1) 06/29/23 04:34 Chloride 101 mmol/L (98-107) 06/29/23 04:34 Carbon Dioxide 26.6 mmol/L (21-32) 06/29/23 04:34 BUN 14 mg/dL (7-18) 06/29/23 04:34 Creatinine 0.69 mg/dL (0.70-1.30) L 06/29/23 04:34 Est GFR (MDRD) Af Amer > 60 (>60) 06/29/23 04:34 Est GFR (MDRD) Non-Af > 60 (>60) 06/29/23 04:34 Glucose 75 mg/dL (65-99) 06/29/23 04:34 Calcium 7.0 mg/dL (8.5-10.1) L 06/29/23 04:34 Corrected Calcium 8.3 mg/dL (8.5-10.1) L 06/29/23 04:34 Magnesium 2.0 mg/dL (2.0-2.9) 06/28/23 04:51 Total Bilirubin 0.80 mg/dL (0.2-1.0) 06/29/23 04:34 AST 37 Units/L (15-37) 06/29/23 04:34 ALT 27 Units/L (12-78) 06/29/23 04:34 Alkaline Phosphatase 54 Units/L (46-116) 06/29/23 04:34 Creatine Kinase 470 Units/L (39-308) H 06/26/23 19:53 Troponin I High Sens 11.2 ng/L (4.0-60.0) 06/26/23 19:53 Total Protein 4.5 g/dL (6.4-8.2) L 06/29/23 04:34 Albumin 2.4 g/dL (3.4-5.0) L 06/29/23 04:34 Globulin 2.1 g/dL (2.5-4.5) L 06/29/23 04:34 Albumin/Globulin Ratio 1.1 Ratio (1.1-2.1) 06/29/23 04:34 Thyroxine (T4) 3.5 ug/dL (4.7-13.3) L 06/28/23 04:51 TSH 3rd Generation 40.339 uIU/mL (0.358-3.74) H 06/28/23 04:51 Stool Occult Blood Positive (NEGATIVE) A 06/26/23 20:35 Stl Occult Blood (IFOB) Positive (NEGATIVE) A 06/28/23 09:35 Blood Type A POSITIVE 06/26/23 19:56 Antibody Screen Negative 06/26/23 19:53 Crossmatch See Detail 06/26/23 19:53 Plan (1) Anemia: Status: Acute Qualifiers: Anemia type: iron deficiency Iron deficiency anemia type: chronic blood loss Qualified Code(s): D50.0 - Iron deficiency anemia secondary to blood loss (chronic) Plan: TRANSFUSE PACKED RED BLOOD CELLS, CONSULT GI, NORMAL SALINE AT 75 ML/HR, PEPCID 20MG IV Q12H, PROTONIX 40MG IV BID, TYLENOL 650MG AND BENADRYL 25MG IV PRN FOR BLOOD TRANSFUSIONS. HOME MEDICATIONS HAVE BEEN RESUMED. PRN SUPPLEMENTAL O2 AM CXR, CARDIAC MONITORING (2) Acute upper GI bleed: Status: Acute (3) Generalized muscle weakness: Status: Acute (4) Dementia: Status: Chronic Qualifiers: Dementia type: Alzheimer's Alzheimer's disease onset: unspecified onset Dementia severity: unspecified severity Dementia behavioral or psychological symptom: unspecified whether behavioral, psychotic, or mood disturbance or anxi ety Qualified Code(s): G30.9 - Alzheimer's disease, unspecified; F02.80 - Dementia in other diseases classified elsewhere, unspecified severity, without behavioral disturbance, psychotic disturbance, mood disturbance, and anxiety Plan: RESUME NAMENDA (5) Depression: Status: Chronic Qualifiers: Depression Type: major depressive disorder Major depression recurrence: recurrent Active/Remission status: remission status unspecified Qualified Code(s): F33.9 - Major depressive disorder, recurrent, unspecified Plan: RESUME ZYPREXA AND ABILIFY (6) Hypertension: Status: Chronic Qualifiers: Hypertension type: primary hypertension Qualified Code(s): I10 - Essential (primary) hypertension Plan: RESUME TOPROL (7) Hypothyroidism: Status: Chronic Qualifiers: Hypothyroidism type: acquired Qualified Code(s): E03.9 - Hypothyroidism, unspecified Plan: RESUME SYNTHROID (8) History of prostate cancer: Status: Acute Plan: RESUME FLOMAX AND DITROPAN (9) Hyperlipidemia: Status: Acute Qualifiers: Hyperlipidemia type: mixed hyperlipidemia Qualified Code(s): E78.2 - Mixed hyperlipidemia Plan: RESUME ZOCOR
[2023-06-29] MEDS: FLOMAX PO SCH (20:13)
[2023-06-29] MEDS: ZOCOR TAB 40 MG PO SCH (20:14)
[2023-06-29] MEDS: ZyPREXA TAB 5 MG PO PRN (20:14)
[2023-06-30 05:27] LABS: BASOPHILS % (AUTO) 0.1 % (0.2-1.0); EOSINOPHILS # (AUTO) 0.1 x10^3/uL (0.0-0.2); EOSINOPHILS % (AUTO) 1.7 % (0.9-2.9); HEMATOCRIT 29.3 % (42.0-54.0); HEMOGLOBIN 9.8 g/dL (13.5-18.0); LYMPHOCYTES # (AUTO) 0.4 X10^3/uL (1.3-2.9); LYMPHOCYTES % (AUTO) 10.8 % (21.0-51.0); MEAN CORPUSCULAR HEMOGLOBIN 31.6 pg (27.0-34.0); MEAN CORPUSCULAR HGB CONC 33.6 g/dL (33.0-35.0); MEAN CORPUSCULAR VOLUME 93.9 fL (80.0-100.0); MEAN PLATELET VOLUME 6.5 fL (7.4-11.0); MONOCYTES # (AUTO) 0.3 x10^3/uL (0.3-0.8); MONOCYTES % (AUTO) 9.4 % (0.0-13.0); NEUTROPHILS # (AUTO) 2.6 x10^3/uL (2.2-4.8); PLATELET COUNT 122 X10^3/uL (150.0-450.0); RED BLOOD COUNT 3.12 X10^6/uL (4.7-6.0); RED CELL DISTRIBUTION WIDTH 16.4 % (11.6-16.5); WHITE BLOOD COUNT 3.3 X10^3/uL (3.6-10.0)
[2023-06-30 05:42] LABS: ALANINE AMINOTRANSFERASE 20 Units/L (12-78); ALBUMIN 2.4 g/dL (3.4-5.0); ALKALINE PHOSPHATASE 57 Units/L (46-116); ASPARTATE AMINO TRANSFERASE 34 Units/L (15-37); BLOOD UREA NITROGEN 12 mg/dL (7-18); CARBON DIOXIDE 27.2 mmol/L (21-32); CHLORIDE 107 mmol/L (98-107); COR CA(FOR HYPOALB) 8.3 mg/dL (8.5-10.1); GLUCOSE 98 mg/dL (65-99); POTASSIUM 3.8 mmol/L (3.5-5.1); SODIUM 141 mmol/L (136-145); TOTAL PROTEIN 4.5 g/dL (6.4-8.2); eGFR NON BLACK RACES > 60 (>60)
[2023-06-30] MEDS: SYNTHROID 125 mcg TAB PO SCH (06:16)
[2023-06-30] MEDS ORDERED: CONSULT PHARMACY - POTASSIUM & MAGNESIUM XX SCH (07:00)
[2023-06-30] MEDS ORDERED: K-DUR TAB 20 MEQ PO SCH (09:00)
[2023-06-30] MEDS: PROTONIX INJ 40 MG VIAL IVP SCH ×2 (09:17→20:48)
[2023-06-30] MEDS: MAG-OX TAB PO SCH ×2 (09:17→11:00)
[2023-06-30] MEDS: PEPCID 20 MG VIAL 20 MG in NS 50 ML IV 50 ML IV SCH ×2 (09:17→20:48)
[2023-06-30] MEDS: NAMENDA TAB 10 MG PO SCH ×2 (09:18→20:48)
[2023-06-30] MEDS: FERROUS GLUCONATE PO SCH (09:18)
[2023-06-30] MEDS: ABILIFY PO SCH (09:18)
[2023-06-30] MEDS: DITROPAN TAB 5 MG PO SCH (09:18)
[2023-06-30] MEDS: ZOLOFT PO SCH (09:18)
[2023-06-30] MEDS: NS 1,000 ML IV 1,000 ML IV SCH ×2 (09:20→23:20)
--- NOTE | 2023-06-30 12:47 | PCM.PROG ---
Progress Note Progress Note for Day of Date of Exam: 06/30/23 Subjective Subjective: IS A 83 YEAR OLD WHITE MALE, PATIENT OF , ER ADMISSION WITH ACUTE GI BLEED. WHEN HE PRESENTED TO THE HOSPITAL WITH COMPLAINTS OF INCREASED WEAKNESS, FATIGUE, AND LOWER EXTREMITY EDEMA, PT HGB WAS 6.5. PT HAS POSITIVE OCCULT STOOL, SP TRANSFUSION [address] PRBC[address] SR MANISH HAS BEEN CONSULTED FOR GI EVALUATION, PT IS NPO FOR EGD. PT IS CURRENTLY ON IV PROTONIX BID. HGB AT 9.8 THIS MORNING. PT DENIES ANY CHEST PAIN OR SOB THIS MORNING AT REST. PT DENIES ANY N/V/D THIS MORNING, BUT REPORTS HE HAS NOT ATE. LABS AND DIAGNOSTIC TESTS REVIEWED WITH PT. PT BP 112/65 AND HE HAD BEEN ON SUPPLEMENTAL O2 SINCE ADMISSION. PT DENIES ANY SOB AT REST AND REPORTS HE DOES NOT USE HOME O2. HE HAS A PMH OF ALZHEIMERS, ANEMIA, CHF, CVA, DEMENTIA, DEPRESSION, GERD, HTN, PROSTATE CANCER, THYROID CANCER, AND BLADDER CANCER. PAST SURGICAL HISTORY INCLUDES: CABG, CHOLECYSTECTOMY, THYROIDECTOMY, PACEMAKER, WATCHMANS PROCEDURE, BILATERAL SHOULDER SURGERY, KNEE REPLACEMENT, BLADDER SURGERY TO REMOVE CANCER. Sunday, 30 June 2023 The patient reports he is feeling better this morning. However, he is still weak and unable to ambulate on his own. He did stand up yesterday with the assistance of his son. The patient may need inpatient rehab, and he is currently thinking about this. I think it would benefit him to do this before going home. He was nonambulatory before coming in here, so we will have physical therapy start working his Sunday if Dr. Darnell has not already done that. Currently, his hemoglobin has improved and is at 9.8 since admission. We will encourage him to get up out of the bed today and get to the chair to sit there is some to help increase his strength and having to try to eat more to increase his calories to maintain his strength. Repeat routine labs in the morning. The EGD did not show a source of bleeding from the upper GI tract. We will repeat routine labs in the morning. Past Medical Family Social History Allergies: Allergies No Known Allergies Allergy (Verified 06/26/23 22:29) Review of Systems ROS: No change since H&P Vital Signs and I&O's Vital Signs: Vital Signs Temperature 97.7 F Pulse Rate 59 Pulse Rate 61 Pulse Rate 60 Pulse Rate 60 Pulse Rate 60 Respiratory Rate 19 Respiratory Rate 20 Respiratory Rate 18 Respiratory Rate 13 Respiratory Rate 12 Blood Pressure 112/64 Blood Pressure 115/65 Blood Pressure 123/66 Blood Pressure 122/67 Blood Pressure 123/67 O2 Sat by Pulse Oximetry 100 O2 Sat by Pulse Oximetry 99 O2 Sat by Pulse Oximetry 100 O2 Sat by Pulse Oximetry 99 O2 Sat by Pulse Oximetry 98 Intake and Output: Intake & Output 06/28/23 06/29/23 06/30/23 07/01/23 11:59 11:59 11:59 11:59 Intake Total 2874 / 2874 2196 / 2196 1616 / 1616 Output Total 600 / 600 1400 / 1400 2250 / 2250 Balance 2274 / 2274 796 / 796 -634 / -634 Physical Exam Oriented: Normal Eyes: Normal Ear: Normal Nose: Normal Throat: Normal Respiratory: Diminished Cardiovascular: Edema (BILATERAL LOWER EXTREMITY 2+ PITTING EDEMA ) and Other (PACEMAKER PRESENT) : Normal Auscultation: Bowel Sounds: Normal Tenderness: Normal Skin: Decreased Turgur Musculoskeletal: Motor Deficit (DIFFUSE WEAKNESS) Psychiatric: Normal Mood Description: Calm Affect: Normal Speech Pattern: Clear and Appropriate Laboratory and Diagnostics 06/30/23 04:45 06/30/23 04:45 Labs: Laboratory WBC 3.3 X10^3/uL (3.6-10.0) L 06/30/23 04:45 RBC 3.12 X10^6/uL (4.7-6.0) L 06/30/23 04:45 Hgb 9.8 g/dL (13.5-18.0) L 06/30/23 04:45 Hct 29.3 % (42.0-54.0) L 06/30/23 04:45 MCV 93.9 fL (80.0-100.0) 06/30/23 04:45 MCH 31.6 pg (27.0-34.0) 06/30/23 04:45 MCHC 33.6 g/dL (33.0-35.0) 06/30/23 04:45 RDW 16.4 % (11.6-16.5) 06/30/23 04:45 Plt Count 122 X10^3/uL (150.0-450.0) L 06/30/23 04:45 MPV 6.5 fL (7.4-11.0) L 06/30/23 04:45 Neut % (Auto) 78.0 % (42.0-75.0) H 06/30/23 04:45 Lymph % (Auto) 10.8 % (21.0-51.0) L 06/30/23 04:45 [place] % (Auto) 9.4 % (0.0-13.0) 06/30/23 04:45 Eos % (Auto) 1.7 % (0.9-2.9) 06/30/23 04:45 Baso % (Auto) 0.1 % (0.2-1.0) L 06/30/23 04:45 Neut # (Auto) 2.6 x10^3/uL (2.2-4.8) 06/30/23 04:45 Lymph # (Auto) 0.4 X10^3/uL (1.3-2.9) L 06/30/23 04:45 [place] # (Auto) 0.3 x10^3/uL (0.3-0.8) 06/30/23 04:45 Eos # (Auto) 0.1 x10^3/uL (0.0-0.2) 06/30/23 04:45 Baso # (Auto) 0.0 X10^3/uL (0.0-0.1) 06/30/23 04:45 Absolute Nucleated RBC 0.1 /100WBC 06/30/23 04:45 PT 15.2 SECONDS (11.8-14.3) 06/26/23 19:53 INR Target Range - 06/26/23 19:53 INR 1.22 (0.8-1.3) 06/26/23 19:53 APTT 67.7 SECONDS (22.9-36.5) H 06/26/23 19:53 PTT Comment - 06/26/23 19:53 Sodium 141 mmol/L (136-145) 06/30/23 04:45 Corrected Sodium TNP 06/30/23 04:45 Potassium 3.8 mmol/L (3.5-5.1) 06/30/23 04:45 Chloride 107 mmol/L (98-107) 06/30/23 04:45 Carbon Dioxide 27.2 mmol/L (21-32) 06/30/23 04:45 BUN 12 mg/dL (7-18) 06/30/23 04:45 Creatinine 0.80 mg/dL (0.70-1.30) 06/30/23 04:45 Est GFR (MDRD) Af Amer > 60 (>60) 06/30/23 04:45 Est GFR (MDRD) Non-Af > 60 (>60) 06/30/23 04:45 Glucose 98 mg/dL (65-99) 06/30/23 04:45 Calcium 7.0 mg/dL (8.5-10.1) L 06/30/23 04:45 Corrected Calcium 8.3 mg/dL (8.5-10.1) L 06/30/23 04:45 Magnesium 1.9 mg/dL (2.0-2.9) L 06/30/23 04:45 Total Bilirubin 0.50 mg/dL (0.2-1.0) 06/30/23 04:45 AST 34 Units/L (15-37) 06/30/23 04:45 ALT 20 Units/L (12-78) 06/30/23 04:45 Alkaline Phosphatase 57 Units/L (46-116) 06/30/23 04:45 Creatine Kinase 470 Units/L (39-308) H 06/26/23 19:53 Troponin I High Sens 11.2 ng/L (4.0-60.0) 06/26/23 19:53 Total Protein 4.5 g/dL (6.4-8.2) L 06/30/23 04:45 Albumin 2.4 g/dL (3.4-5.0) L 06/30/23 04:45 Globulin 2.1 g/dL (2.5-4.5) L 06/30/23 04:45 Albumin/Globulin Ratio 1.1 Ratio (1.1-2.1) 06/30/23 04:45 Thyroxine (T4) 3.5 ug/dL (4.7-13.3) L 06/28/23 04:51 TSH 3rd Generation 40.339 uIU/mL (0.358-3.74) H 06/28/23 04:51 Stool Occult Blood Positive (NEGATIVE) A 06/26/23 20:35 Stl Occult Blood (IFOB) Positive (NEGATIVE) A 06/28/23 09:35 Blood Type A POSITIVE 06/26/23 19:56 Antibody Screen Negative 06/26/23 19:53 Crossmatch See Detail 06/26/23 19:53 Radiology Reviewed: Yes Plan (1) Anemia: Status: Resolved Qualifiers: Anemia type: iron deficiency Iron deficiency anemia type: chronic blood loss Qualified Code(s): D50.0 - Iron deficiency anemia secondary to blood loss (chronic) Plan: TRANSFUSE PACKED RED BLOOD CELLS, CONSULT GI, NORMAL SALINE AT 75 ML/HR, PEPCID 20MG IV Q12H, PROTONIX 40MG IV BID, TYLENOL 650MG AND BENADRYL 25MG IV PRN FOR BLOOD TRANSFUSIONS. HOME MEDICATIONS HAVE BEEN RESUMED. PRN SUPPLEMENTAL O2 AM CXR, CARDIAC MONITORING Patient's hemoglobin has improved to 9.8 this morning and is stable. (2) Acute upper GI bleed: Status: Resolved Plan: The patient's acute upper GI bleed seems to have resolved at this time. (3) Generalized muscle weakness: Status: Acute (4) Dementia: Status: Chronic Qualifiers: Dementia type: Alzheimer's Alzheimer's disease onset: unspecified onset Dementia severity: unspecified severity Dementia behavioral or psychological symptom: unspecified whether behavioral, psychotic, or mood disturbance or anxiety Qualified Code(s): G30.9 - Alzheimer's disease, unspecified; F02.80 - Dementia in other diseases classified elsewhere, unspecified severity, without behavioral disturbance, psychotic disturbance, mood disturbance, and anxiety Plan: RESUME NAMENDA (5) Depression: Status: Chronic Qualifiers: Depression Type: major depressive disorder Major depression recurrence: recurrent Active/Remission status: remission status unspecified Qualified Code(s): F33.9 - Major depressive disorder, recurrent, unspecified Plan: RESUME ZYPREXA AND ABILIFY (6) Hypertension: Status: Chronic Qualifiers: Hypertension type: primary hypertension Qualified Code(s): I10 - Essential (primary) hypertension Plan: RESUME TOPROL (7) Hypothyroidism: Status: Chronic Qualifiers: Hypothyroidism type: acquired Qualified Code(s): E03.9 - Hypothyroidism, unspecified Plan: RESUME SYNTHROID (8) History of prostate cancer: Status: Acute Plan: RESUME FLOMAX AND DITROPAN (9) Hyperlipidemia: Status: Acute Qualifiers: Hyperlipidemia type: mixed hyperlipidemia Qualified Code(s): E78.2 - Mixed hyperlipidemia Plan: RESUME ZOCOR
[2023-06-30] MEDS: COLACE SYRUP 100 MG UDC PO SCH ×2 (13:29→20:31)
[2023-06-30] MEDS: ZOCOR TAB 40 MG PO SCH (20:48)
[2023-06-30] MEDS: FLOMAX PO SCH (20:48)
[2023-06-30] MEDS: ZyPREXA TAB 5 MG PO PRN (20:48)
[2023-07-01 05:10] LABS: BASOPHILS % (AUTO) 0.1 % (0.2-1.0); EOSINOPHILS # (AUTO) 0.1 x10^3/uL (0.0-0.2); EOSINOPHILS % (AUTO) 2.1 % (0.9-2.9); HEMATOCRIT 27.6 % (42.0-54.0); HEMOGLOBIN 9.4 g/dL (13.5-18.0); LYMPHOCYTES # (AUTO) 0.4 X10^3/uL (1.3-2.9); LYMPHOCYTES % (AUTO) 13.1 % (21.0-51.0); MEAN CORPUSCULAR HEMOGLOBIN 32.1 pg (27.0-34.0); MEAN CORPUSCULAR HGB CONC 34.2 g/dL (33.0-35.0); MEAN CORPUSCULAR VOLUME 93.7 fL (80.0-100.0); MEAN PLATELET VOLUME 6.5 fL (7.4-11.0); MONOCYTES # (AUTO) 0.3 x10^3/uL (0.3-0.8); MONOCYTES % (AUTO) 8.2 % (0.0-13.0); NEUTROPHILS # (AUTO) 2.4 x10^3/uL (2.2-4.8); NEUTROPHILS % (AUTO) 76.5 % (42.0-75.0); PLATELET COUNT 105 X10^3/uL (150.0-450.0); RED BLOOD COUNT 2.94 X10^6/uL (4.7-6.0); RED CELL DISTRIBUTION WIDTH 16.7 % (11.6-16.5); WHITE BLOOD COUNT 3.1 X10^3/uL (3.6-10.0)
[2023-07-01] MEDS: SYNTHROID 125 mcg TAB PO SCH (05:28)
[2023-07-01 05:36] LABS: ALANINE AMINOTRANSFERASE 23 Units/L (12-78); ALBUMIN 2.3 g/dL (3.4-5.0); ALKALINE PHOSPHATASE 54 Units/L (46-116); ASPARTATE AMINO TRANSFERASE 33 Units/L (15-37); BLOOD UREA NITROGEN 13 mg/dL (7-18); CALCIUM 7.1 mg/dL (8.5-10.1); CARBON DIOXIDE 26.8 mmol/L (21-32); CHLORIDE 108 mmol/L (98-107); COR CA(FOR HYPOALB) 8.5 mg/dL (8.5-10.1); CREATININE 0.75 mg/dL (0.70-1.30); GLUCOSE 89 mg/dL (65-99); MAGNESIUM 1.8 mg/dL (2.0-2.9); POTASSIUM 3.9 mmol/L (3.5-5.1); SODIUM 141 mmol/L (136-145); TOTAL PROTEIN 4.5 g/dL (6.4-8.2); eGFR NON BLACK RACES > 60 (>60)
[2023-07-01] MEDS ORDERED: CONSULT PHARMACY - POTASSIUM & MAGNESIUM XX SCH (08:00)
[2023-07-01] MEDS ORDERED: K-DUR TAB 20 MEQ PO SCH (09:00)
[2023-07-01] MEDS: PEPCID 20 MG VIAL 20 MG in NS 50 ML IV 50 ML IV SCH ×2 (09:55→20:52)
[2023-07-01] MEDS: PROTONIX INJ 40 MG VIAL IVP SCH ×2 (09:56→20:53)
[2023-07-01] MEDS: MAG-OX TAB PO SCH ×2 (09:56→11:52)
[2023-07-01] MEDS: ZOLOFT PO SCH (09:56)
[2023-07-01] MEDS: FERROUS GLUCONATE PO SCH (09:57)
[2023-07-01] MEDS: DITROPAN TAB 5 MG PO SCH (09:57)
[2023-07-01] MEDS: ABILIFY PO SCH (09:57)
[2023-07-01] MEDS: COLACE SYRUP 100 MG UDC PO SCH ×3 (09:57→20:52)
[2023-07-01] MEDS: NAMENDA TAB 10 MG PO SCH ×2 (09:57→20:52)
[2023-07-01] MEDS ORDERED: HALDOL INJ IM PRN (10:44)
[2023-07-01] MEDS: NS 1,000 ML IV 1,000 ML IV SCH (12:24)
--- NOTE | 2023-07-01 14:01 | PCM.PROG ---
Progress Note Progress Note for Day of Date of Exam: 07/01/23 Subjective Subjective: IS A 83 YEAR OLD WHITE MALE, PATIENT OF , ER ADMISSION WITH ACUTE GI BLEED. WHEN HE PRESENTED TO THE HOSPITAL WITH COMPLAINTS OF INCREASED WEAKNESS, FATIGUE, AND LOWER EXTREMITY EDEMA, PT HGB WAS 6.5. PT HAS POSITIVE OCCULT STOOL, SP TRANSFUSION 4 PRBC. SR MANISH HAS BEEN CONSULTED FOR GI EVALUATION, PT IS NPO FOR EGD. PT IS CURRENTLY ON IV PROTONIX BID. HGB AT 9.8 THIS MORNING. PT DENIES ANY CHEST PAIN OR SOB THIS MORNING AT REST. PT DENIES ANY N/V/D THIS MORNING, BUT REPORTS HE HAS NOT ATE. LABS AND DIAGNOSTIC TESTS REVIEWED WITH PT. PT BP 112/65 AND HE HAD BEEN ON SUPPLEMENTAL O2 SINCE ADMISSION. PT DENIES ANY SOB AT REST AND REPORTS HE DOES NOT USE HOME O2. HE HAS A PMH OF ALZHEIMERS, ANEMIA, CHF, CVA, DEMENTIA, DEPRESSION, GERD, HTN, PROSTATE CANCER, THYROID CANCER, AND BLADDER CANCER. PAST SURGICAL HISTORY INCLUDES: CABG, CHOLECYSTECTOMY, THYROIDECTOMY, PACEMAKER, WATCHMANS PROCEDURE, BILATERAL SHOULDER SURGERY, KNEE REPLACEMENT, BLADDER SURGERY TO REMOVE CANCER. Sunday, 30 June 2023 The patient reports he is feeling better this morning. However, he is still weak and unable to ambulate on his own. He did stand up yesterday with the assistance of his son. The patient may need inpatient rehab, and he is currently thinking about this. I think it would benefit him to do this before going home. He was nonambulatory before coming in here, so we will have physical therapy start working his Sunday if Dr. Darnell has not already done that. Currently, his hemoglobin has improved and is at 9.8 since admission. We will encourage him to get up out of the bed today and get to the chair to sit there is some to help increase his strength and having to try to eat more to increase his calories to maintain his strength. Repeat routine labs in the morning. The EGD did not show a source of bleeding from the upper GI tract. We will repeat routine labs in the morning. 01 July 2023 The patient is alert and awake this morning. He was admitted some days back for an acute GI bleed. He is a patient of Dr. Medina in [place], [place]. His hemoglobin is 9.4 this morning which is a drop down from 9.8 yesterday and the day before. He is currently receiving Protonix 40 mg IV twice daily. He did manage to get out of the bed yesterday to the chair and sit for a number of hours we plan on doing that again for him today. His platelet count dropped from 122,000 yesterday to 105,000 this morning. This may be indicative of some recurrent bleeding still. The patient had an EGD done on 06/29/2023 which was 2 days ago that showed a duodenal polyp without active bleeding. In the meantime we will continue him on the IV Protonix and encouraged him to ambulate in order to keep her strength up and advance his diet as tolerated. We will watch his hemoglobin daily and transfuse as necessary. Past Medical Family Social History Allergies: Allergies No Known Allergies Allergy (Verified 06/26/23 22:29) Review of Systems ROS: No change since H&P Vital Signs and I&O's Vital Signs: Vital Signs Temperature 97.9 F Pulse Rate 59 Pulse Rate 62 Pulse Rate 60 Pulse Rate 61 Pulse Rate 60 Respiratory Rate 18 Respiratory Rate 18 Respiratory Rate 17 Respiratory Rate 18 Respiratory Rate 12 Blood Pressure 126/67 Blood Pressure 125/65 Blood Pressure 117/64 Blood Pressure 126/70 Blood Pressure 117/65 O2 Sat by Pulse Oximetry 96 O2 Sat by Pulse Oximetry 98 O2 Sat by Pulse Oximetry 98 O2 Sat by Pulse Oximetry 98 O2 Sat by Pulse Oximetry 99 Intake and Output: Intake & Output 06/29/23 06/30/23 07/01/23 07/02/23 11:59 11:59 11:59 11:59 Intake Total 2196 / 2196 1616 / 1616 2107 / 2107 Output Total 1400 / 1400 2250 / 2250 2500 / 2500 Balance 796 / 796 -634 / -634 -393 / -393 Physical Exam Oriented: Normal Eyes: Normal Ear: Normal Nose: Normal Throat: Normal Respiratory: Diminished Cardiovascular: Edema (BILATERAL LOWER EXTREMITY 2+ PITTING EDEMA ) and Other (PACEMAKER PRESENT) : Normal Auscultation: Bowel Sounds: Normal Tenderness: Normal Skin: Decreased Turgur Musculoskeletal: Motor Deficit (DIFFUSE WEAKNESS) Psychiatric: Normal Mood Description: Calm Affect: Normal Speech Pattern: Clear and Appropriate Laboratory and Diagnostics 07/01/23 04:13 07/01/23 04:13 Labs: Laboratory WBC 3.1 X10^3/uL (3.6-10.0) L 07/01/23 04:13 RBC 2.94 X10^6/uL (4.7-6.0) L 07/01/23 04:13 Hgb 9.4 g/dL (13.5-18.0) L 07/01/23 04:13 Hct 27.6 % (42.0-54.0) L 07/01/23 04:13 MCV 93.7 fL (80.0-100.0) 07/01/23 04:13 MCH 32.1 pg (27.0-34.0) 07/01/23 04:13 MCHC 34.2 g/dL (33.0-35.0) 07/01/23 04:13 RDW 16.7 % (11.6-16.5) H 07/01/23 04:13 Plt Count 105 X10^3/uL (150.0-450.0) L 07/01/23 04:13 MPV 6.5 fL (7.4-11.0) L 07/01/23 04:13 Neut % (Auto) 76.5 % (42.0-75.0) H 07/01/23 04:13 Lymph % (Auto) 13.1 % (21.0-51.0) L 07/01/23 04:13 Ritchie % (Auto) 8.2 % (0.0-13.0) 07/01/23 04:13 Eos % (Auto) 2.1 % (0.9-2.9) 07/01/23 04:13 Baso % (Auto) 0.1 % (0.2-1.0) L 07/01/23 04:13 Neut # (Auto) 2.4 x10^3/uL (2.2-4.8) 07/01/23 04:13 Lymph # (Auto) 0.4 X10^3/uL (1.3-2.9) L 07/01/23 04:13 Ritchie # (Auto) 0.3 x10^3/uL (0.3-0.8) 07/01/23 04:13 Eos # (Auto) 0.1 x10^3/uL (0.0-0.2) 07/01/23 04:13 Baso # (Auto) 0.0 X10^3/uL (0.0-0.1) 07/01/23 04:13 Absolute Nucleated RBC 0.0 /100WBC 07/01/23 04:13 PT 15.2 SECONDS (11.8-14.3) 06/26/23 19:53 INR Target Range - 06/26/23 19:53 INR 1.22 (0.8-1.3) 06/26/23 19:53 APTT 67.7 SECONDS (22.9-36.5) H 06/26/23 19:53 PTT Comment - 06/26/23 19:53 Sodium 141 mmol/L (136-145) 07/01/23 04:13 Corrected Sodium TNP 07/01/23 04:13 Potassium 3.9 mmol/L (3.5-5.1) 07/01/23 04:13 Chloride 108 mmol/L (98-107) H 07/01/23 04:13 Carbon Dioxide 26.8 mmol/L (21-32) 07/01/23 04:13 BUN 13 mg/dL (7-18) 07/01/23 04:13 Creatinine 0.75 mg/dL (0.70-1.30) 07/01/23 04:13 Est GFR (MDRD) Af Amer > 60 (>60) 07/01/23 04:13 Est GFR (MDRD) Non-Af > 60 (>60) 07/01/23 04:13 Glucose 89 mg/dL (65-99) 07/01/23 04:13 Calcium 7.1 mg/dL (8.5-10.1) L 07/01/23 04:13 Corrected Calcium 8.5 mg/dL (8.5-10.1) 07/01/23 04:13 Magnesium 1.8 mg/dL (2.0-2.9) L 07/01/23 04:13 Total Bilirubin 0.50 mg/dL (0.2-1.0) 07/01/23 04:13 AST 33 Units/L (15-37) 07/01/23 04:13 ALT 23 Units/L (12-78) 07/01/23 04:13 Alkaline Phosphatase 54 Units/L (46-116) 07/01/23 04:13 Creatine Kinase 470 Units/L (39-308) H 06/26/23 19:53 Troponin I High Sens 11.2 ng/L (4.0-60.0) 06/26/23 19:53 Total Protein 4.5 g/dL (6.4-8.2) L 07/01/23 04:13 Albumin 2.3 g/dL (3.4-5.0) L 07/01/23 04:13 Globulin 2.2 g/dL (2.5-4.5) L 07/01/23 04:13 Albumin/Globulin Ratio 1.0 Ratio (1.1-2.1) L 07/01/23 04:13 Thyroxine (T4) 3.5 ug/dL (4.7-13.3) L 06/28/23 04:51 Total T3 36 ng/dL (80-200) L 06/28/23 04:51 TSH 3rd Generation 40.339 uIU/mL (0.358-3.74) H 06/28/23 04:51 Stool Occult Blood Positive (NEGATIVE) A 06/26/23 20:35 Stl Occult Blood (IFOB) Positive (NEGATIVE) A 06/28/23 09:35 Blood Type A POSITIVE 06/26/23 19:56 Antibody Screen Negative 06/26/23 19:53 Crossmatch See Detail 06/26/23 19:53 Plan (1) Anemia: Status: Resolved Qualifiers: Anemia type: iron deficiency Iron deficiency anemia type: chronic blood loss Qualified Code(s): D50.0 - Iron deficiency anemia secondary to blood loss (chronic) Plan: TRANSFUSE PACKED RED BLOOD CELLS, CONSULT GI, NORMAL SALINE AT 75 ML/HR, PEPCID 20MG IV Q12H, PROTONIX 40MG IV BID, TYLENOL 650MG AND BENADRYL 25MG IV PRN FOR BLOOD TRANSFUSIONS. HOME MEDICATIONS HAVE BEEN RESUMED. PRN SUPPLEMENTAL O2 AM CXR, CARDIAC MONITORING Patient's hemoglobin has improved to 9.8 this morning and is stable. (2) Acute upper GI bleed: Status: Resolved Plan: The patient's acute upper GI bleed seems to have resolved at this time. (3) Generalized muscle weakness: Status: Acute (4) Dementia: Status: Chronic Qualifiers: Dementia type: Alzheimer's Alzheimer's disease onset: unspecified onset Dementia severity: unspecified severity Dementia behavioral or psychological symptom: unspecified whether behavioral, psychotic, or mood disturbance or anxiety Qualified Code(s): G30.9 - Alzheimer's disease, unspecified; F02.80 - Dementia in other diseases classified elsewhere, unspecified severity, without behavioral disturbance, psychotic disturbance, mood disturbance, and anxiety Plan: RESUME NAMENDA (5) Depression: Status: Chronic Qualifiers: Depression Type: major depressive disorder Major depression recurrence: recurrent Active/Remission status: remission status unspecified Qualified Code(s): F33.9 - Major depressive disorder, recurrent, unspecified Plan: RESUME ZYPREXA AND ABILIFY (6) Hypertension: Status: Chronic Qualifiers: Hypertension type: primary hypertension Qualified Code(s): I10 - Essential (primary) hypertension Plan: RESUME TOPROL (7) Hypothyroidism: Status: Chronic Qualifiers: Hypothyroidism type: acquired Qualified Code(s): E03.9 - Hypothyro idism, unspecified Plan: RESUME SYNTHROID (8) History of prostate cancer: Status: Acute Plan: RESUME FLOMAX AND DITROPAN (9) Hyperlipidemia: Status: Acute Qualifiers: Hyperlipidemia type: mixed hyperlipidemia Qualified Code(s): E78.2 - Mixed hyperlipidemia Plan: RESUME ZOCOR
[2023-07-01] MEDS: ZOCOR TAB 40 MG PO SCH (20:52)
[2023-07-01] MEDS: FLOMAX PO SCH (20:52)
[2023-07-01] MEDS: ZyPREXA TAB 5 MG PO PRN (20:52)
[2023-07-02] MEDS: NS 1,000 ML IV 1,000 ML IV SCH (01:59)
[2023-07-02 04:57] LABS: BASOPHILS % (AUTO) 0.2 % (0.2-1.0); EOSINOPHILS # (AUTO) 0.1 x10^3/uL (0.0-0.2); EOSINOPHILS % (AUTO) 2.8 % (0.9-2.9); HEMATOCRIT 28.6 % (42.0-54.0); HEMOGLOBIN 9.6 g/dL (13.5-18.0); LYMPHOCYTES # (AUTO) 0.4 X10^3/uL (1.3-2.9); LYMPHOCYTES % (AUTO) 14.9 % (21.0-51.0); MEAN CORPUSCULAR HEMOGLOBIN 31.8 pg (27.0-34.0); MEAN CORPUSCULAR HGB CONC 33.7 g/dL (33.0-35.0); MEAN CORPUSCULAR VOLUME 94.4 fL (80.0-100.0); MEAN PLATELET VOLUME 6.4 fL (7.4-11.0); MONOCYTES # (AUTO) 0.3 x10^3/uL (0.3-0.8); MONOCYTES % (AUTO) 8.9 % (0.0-13.0); NEUTROPHILS # (AUTO) 2.1 x10^3/uL (2.2-4.8); NEUTROPHILS % (AUTO) 73.2 % (42.0-75.0); PLATELET COUNT 97 X10^3/uL (150.0-450.0); RED BLOOD COUNT 3.03 X10^6/uL (4.7-6.0); RED CELL DISTRIBUTION WIDTH 17.1 % (11.6-16.5); WHITE BLOOD COUNT 2.9 X10^3/uL (3.6-10.0)
[2023-07-02 05:00] LABS: ALANINE AMINOTRANSFERASE 20 Units/L (12-78); ALBUMIN 2.4 g/dL (3.4-5.0); ALKALINE PHOSPHATASE 56 Units/L (46-116); ASPARTATE AMINO TRANSFERASE 30 Units/L (15-37); BLOOD UREA NITROGEN 13 mg/dL (7-18); CALCIUM 7.4 mg/dL (8.5-10.1); CARBON DIOXIDE 28.6 mmol/L (21-32); CHLORIDE 108 mmol/L (98-107); COR CA(FOR HYPOALB) 8.7 mg/dL (8.5-10.1); CREATININE 0.74 mg/dL (0.70-1.30); GLUCOSE 83 mg/dL (65-99); MAGNESIUM 1.8 mg/dL (2.0-2.9); SODIUM 142 mmol/L (136-145); TOTAL PROTEIN 4.7 g/dL (6.4-8.2); eGFR NON BLACK RACES > 60 (>60)
[2023-07-02] MEDS: SYNTHROID 125 mcg TAB PO SCH (05:45)
[2023-07-02] MEDS ORDERED: CONSULT PHARMACY - POTASSIUM & MAGNESIUM XX SCH (07:00)
[2023-07-02 08:06] VITALS: TEMP 97.9
[2023-07-02] MEDS: FERROUS GLUCONATE PO SCH (08:44)
[2023-07-02] MEDS: PROTONIX INJ 40 MG VIAL IVP SCH (08:44)
[2023-07-02] MEDS: COLACE SYRUP 100 MG UDC PO SCH (08:44)
[2023-07-02] MEDS: PEPCID 20 MG VIAL 20 MG in NS 50 ML IV 50 ML IV SCH (08:44)
[2023-07-02] MEDS: MAG-OX TAB PO SCH ×2 (08:44→09:57)
[2023-07-02] MEDS: DITROPAN TAB 5 MG PO SCH (08:44)
[2023-07-02] MEDS: ZOLOFT PO SCH (08:44)
[2023-07-02] MEDS: NAMENDA TAB 10 MG PO SCH (08:44)
[2023-07-02] MEDS: ABILIFY PO SCH (08:45)
[2023-07-02 10:05] VITALS: O2SAT 98
[2023-07-02 11:25] VITALS: BP 130/69; PULSE 61; RESP 11
== END 2023-07-02 11:29 | disposition swing bed (61) | DRG 812 ==
LOC: ER 17:40 → ICU 21:19
PROVIDERS: ADMIT Internal Medicine; ATTEND Internal Medicine
DX: Z95.0 Presence of cardiac pacemaker; D13.2 Benign neoplasm of duodenum; R53.1 Weakness; M62.81 Muscle weakness (generalized); Z85.46 Personal history of malignant neoplasm of prostate; R06.02 Shortness of breath; F33.9 Major depressive disorder, recurrent, unspecified; K27.9 Peptic ulcer, site unspecified, unspecified as acute or chronic, without hemorrhage or perforation; G30.9 Alzheimer's disease, unspecified; E03.8 Other specified hypothyroidism; E87.1 Hypo-osmolality and hyponatremia; D50.0 Iron deficiency anemia secondary to blood loss (chronic); K21.9 Gastro-esophageal reflux disease without esophagitis; R60.0 Localized edema; K22.89 Other specified disease of esophagus; E78.2 Mixed hyperlipidemia; F02.80 Dementia in other diseases classified elsewhere, unspecified severity, without behavioral disturbance, psychotic disturbance, mood disturbance, and anxiety; R53.83 Other fatigue; I10 Essential (primary) hypertension

== ENCOUNTER 2023-07-02 11:30 | Inpatient (IN) ==
[2023-07-02 12:18] VITALS: BMI 20.9
[2023-07-02] MEDS ORDERED: ZyPREXA TAB 5 MG PO PRN (13:30)
[2023-07-02] MEDS ORDERED: PEPCID TAB 20 MG PO PRN (13:30)
[2023-07-02] MEDS ORDERED: ROBITUSSIN DM PO PRN (13:30)
[2023-07-02] MEDS ORDERED: HALDOL INJ IM PRN (13:30)
[2023-07-02] MEDS ORDERED: ZOFRAN ODT PO PRN (13:30)
[2023-07-02] MEDS ORDERED: MILK OF MAGNESIA PO PRN (13:30)
[2023-07-02] MEDS ORDERED: TYLENOL 325 MG TAB PO PRN (13:30)
--- NOTE | 2023-07-02 15:48 | PT/OTEVAL ---
PT/OT OBJECTIVES - HISTORY Prescription: PT Consult Diagnosis: Anemia, Deconditioning Precautions: Fall Risk, Pacemaker, Dementia with Decreased Safety Awareness PMH: Alzheimer's Dementia, Anemia, CHF, CVA, Depression, GERD, HTN, Prostate Cancer, Thyroid Cancer, Bladder Cancer, CABG/Valve Surgery, Cholecystectomy, Ortho Surgery, Thyroidectomy, Pacemaker, Watchman Procedure, B Shoulder Replacements, Knee Replacement, Bladder Surgery Prior Level of Function: Independent Other: Prior to ~7 weeks ago, pt was independent with all mobility tasks within home and community without a device. Family & pt both report around that time BLEs began to swell and started to result in overall decline in strength and mobility requiring some assistance from family. Pt has walker at home. Pt resides with in single story home with 2 steps to enter with no handrails. History of Present Illness: Pt is an 83 year old male who was transferred to [facility] on 06/26/2023 from another facility due to anemia and GI bleed. Pt had been progressively declining over the last several weeks and is now unable to return home at this level of function. Pt's can help minimally but pt needs to increase his strength prior to returning home. Pt transitioned to swing bed therapy program on 07/02/2023. - COGNITION Mental Status: Alert, Oriented, Name, Place, Decreased Safety Awarenes Communication Status: Verbal Ability to Follow Directions: 1 Step Memory Loss: Short term memory loss Affect: Calm - PAIN Sacrum Pain Scale: Moderate (5-6) Comments: "It just hurting on my bottom" Generalized Comments: Primarily to BLEs, alleviated some after moving around. - BED MOBILITY Rolling: Minimal - TRANSFERS Supine to Sit: Minimal Sit to Stand: Minimal Toileting: Minimal Safety (requires cues for:): Hand Placement Precaution - BALANCE Dynamic Sitting: Good Standing: Poor Static Sitting: Good Standing: Fair Balance Comment: Fair- - NEUROMOTOR/SENSATION Remberto. Lower Ext Sensation: WFL Coordination: WFL Proprioception: WFL - ROM Bilateral LE ROM: WFL Muscle Tone: WFL - STRENGTH Bilateral LE Strength Number: 3 Other comment: 3+/5 - GAIT Pt. ambulates how many feet?: 25 Amount of Assistance Required: Minimal Type of Assistive Device: Rolling Walker Comments: Posterior lean, decreased safety awareness with FWW - OBJECTIVE MEASURES & STANDARDS Objective Measures & Standards: 30 Second Sit to Stand: 0 (requires min assist) - TREATMENT Date: 07/02/23 Time: 12:00 Treatment Type: Evaluation Treatment Provided: Therapeutic Activities - TOTAL TREATMENT TIME Total Time: 75 - POST ASSESSMENT Post Assessment Comment: Pt was found supine in bed in room & agreeable to participation in PT services. Pt reports pain to sacral area where wound present but no other complaints of pain. Pt is familiar to this PT from acute care admission; however, pt appears more clear and able to tell more about his history & PLOF. Pt required min assist for bed mobility tasks and functional transfers. Initially with posterior lean in standing position but able to correct with verbal and tactile cues. Pt able to ambulate for 25ft with FWW with min assist for safety and postural correction. Pt does easily fatigue & require therapeutic rest breaks throughout. Pt left seated in recliner chair following session. PT spoke with pt's and daughter re: status levels and goals. Pt would benefit from continued participation in PT services to address deficits and facilitate highest level of function and safe discharge planning. - EXIT DISPOSITION Exit Position: CHAIR Call light in reach: Yes Comments: and daughter both present at end of session PT/OT ASSESSMENT - PT Problem List: Decreased Bed Mobility, Decreased Transfers, Decreased Gait, Decreased Balance, Decreased Safety, Decreased LE Strength - PT GOALS Short Term Goals Days: 10 Mobility: Pt will perform bed mobility tasks with supervision Transfers: Pt will perform functional transfers with touch assist Gait: Pt will ambulate 150ft with FWW with touch assist Balance: Pt will increase static standing balance to good Fci Goals Days: 20 Mobility: Pt will perform bed mobility tasks with mod I Transfers: Pt will perform functional transfers with mod I Gait: Pt will ambulate 250ft with LRAD with supervision Balance: Pt will increase dynamic standing balance to fair+ ROM/Strength: Pt will increase BLE strength to 5/5 Others: Pt will ascend/descend 3 stairs with touch assist - PATIENT GOALS Patient/Family Goals: "I need my strength back so I can go home" Goals Discussed with Patient/Family: Yes Rehabilitation Potential: Good to meet stated goals Justification for Potential: Facilitate highest level of function and safe discharge planning Weakness and Barriers: None - PLAN Suggested Treatment Plan: Bed Mobility Training, Therapeutic Activity, Gait Training, Neuro Re-education, Therapeutic Ex with HEP, Patient Education, Family Education - FREQUENCY AND DURATION PT: 5-6x per week x 20 days Expected Continuation of Care at Discharge: Home Health
[2023-07-02] MEDS: ZOCOR TAB 40 MG PO SCH (20:50)
[2023-07-02] MEDS: COLACE SYRUP 100 MG UDC PO SCH (20:50)
[2023-07-02] MEDS: FLOMAX PO SCH (20:50)
[2023-07-02] MEDS: PROTONIX TAB 40 MG PO SCH (20:50)
[2023-07-02] MEDS: NAMENDA TAB 10 MG PO SCH (20:51)
[2023-07-03] MEDS: SYNTHROID 125 mcg TAB PO SCH (05:46)
[2023-07-03] MEDS: ZOLOFT PO SCH (09:17)
[2023-07-03] MEDS: DITROPAN TAB 5 MG PO SCH (09:18)
[2023-07-03] MEDS: PROTONIX TAB 40 MG PO SCH ×2 (09:19→20:38)
[2023-07-03] MEDS: ABILIFY PO SCH (09:19)
[2023-07-03] MEDS: FERROUS GLUCONATE PO SCH (09:20)
[2023-07-03] MEDS: NAMENDA TAB 10 MG PO SCH ×2 (09:20→20:38)
[2023-07-03] MEDS: COLACE SYRUP 100 MG UDC PO SCH ×2 (09:20→20:38)
--- NOTE | 2023-07-03 11:08 | PT/OTEVAL ---
PT/OT OBJECTIVES - HISTORY Prescription: OT Consult Diagnosis: Anemia, Deconditioning Precautions: Fall risk, pacemaker, dementia with decreased safety awareness PMH: PMH is significant but not limited to alzheimer's dementia, anemia, CHF, CVA, depression, GERD, HTN, prostate cancer, throid cancer, bladder cancer, CABG/valve surgery, cholecystectomy, ortho surgery, thryoidectomy, pacemaker, watchman procedure, B shoulder replacements, knee replacement, and bladder surgery. Prior Level of Function: Independent Other: Per pt report, pt lives with his in a 1 story home, with 2 steps into the home and he uses the car port to get intot the home. He was (I) with ADLs before decline. Pt completes all IADLs. Pt was driving before decline. Pt has a walker at home. History of Present Illness: Pt is a 83 year old male who was transferred to [facility] on 06/26/2023 from another facility due to anemia and GI bleed. Pt had been progressively declining over the last several weeks and is now unable to return at this level of function. Pts can help minimally but pt needs to increase his strength prior to returning home. Pt transitioned to swing bed therapy program on 07/02/2023. - COGNITION Mental Status: Alert, Oriented, Name, Place, Decreased Safety Awarenes Communication Status: Verbal Ability to Follow Directions: 1 Step Memory Loss: Short term memory loss Affect: Calm - PAIN Sacrum Pain Scale: Mild (3-4) Comments: R hip area Generalized Pain Scale: Moderate (5-6) Comments: Primarily to BLEs, alleviated some after moving around. - BED MOBILITY Rolling: Minimal - TRANSFERS Supine to Sit: Minimal Sit to Stand: Minimal Sit or Stand Pivot: Minimal Toileting: Minimal Safety (requires cues for:): Hand Placement Precaution - ADL'S Feeding: Supervision Grooming: Supervision Upper Body ADL: Moderate, N/A Lower Body ADL: Moderate Toileting: Minimum Bathing: Moderate Hygeine: Moderate - BALANCE Dynamic Sitting: Good Standing: Poor Balance Comment: (B) UEs requried to maintain balance secondary to posterior lean Static Sitting: Good Standing: Fair Balance Comment: Fair- - NEUROMOTOR/SENSATION Remberto. Lower Ext Sensation: WFL Coordination: WFL Proprioception: WFL Remberto. Upper Ext Sensation: WFL Coordination: WFL Proprioception: WFL - ROM Bilateral UE ROM: Impaired (B shoulder flexion limitation) - STRENGTH Bilateral LE Strength Number: 3 Other comment: 3+/5 Bilateral UE Strength Number: 3 - TREATMENT Date: 07/03/23 Time: 08:15 Treatment Type: Evaluation Treatment Provided: Therapeutic Excersises, Other - TOTAL TREATMENT TIME Total Time: 90 - POST ASSESSMENT Post Assessment Comment: Pt was seen by skilled OT to assess CLOF. Pt was supine upon arrival. Pt was able to give history at this time. Pt completed log rolling in bed to complete a brief change and hygiene. Pt was able to clean front without A, needed A with back side. Pt supine to sit EOB with min A. Pt donned pants EOB with mod A and min VC. STS with RW and min A with MIN vc for hand placement and safety. Pt functionally tranasferred to recliner with RW mod VC and min A. Pt sat up in recliner and completed BUE exe using a 2 # hand weight 10 reps x2 of shoulder flex to 90 degrees (due to shoulder limitations), shoulder press, and bicep curls. Extended RBs for fatigue given. Pt fatigues easily. - EXIT DISPOSITION Exit Position: CHAIR Call light in reach: Yes Bed Alarm On: N/A PT/OT ASSESSMENT - OT Problem List: Decreased Mobility ADL's, Decreased Safety Aware, Decreased Dressing, Decreased Bathing, Decreased Grooming, Decreased UE Strength - PT GOALS Short Term Goals Days: 10 Mobility: Pt will perform bed mobility tasks with supervision Transfers: Pt will perform functional transfers with touch assist Gait: Pt will ambulate 150ft with FWW with touch assist Balance: Pt will increase static standing balance to good Group Home Goals Days: 20 Mobility: Pt will perform bed mobility tasks with mod I Transfers: Pt will perform functional transfers with mod I Gait: Pt will ambulate 250ft with LRAD with supervision Balance: Pt will increase dynamic standing balance to fair+ ROM/Strength: Pt will increase BLE strength to 5/5 Others: Pt will ascend/descend 3 stairs with touch assist - OT GOALS [employer] Shelter Goals Days: 20 Mobility for ADL's: Pt will functionally transfer to commode with mod (I) Safety Awareness: Pt will imrpove safety awareness to G for ADL self care skills Dressing: Pt will improve LB dressing to mod (I) Bathing: Pt will improve bathing to mod (I) Grooming: Pt will be improve grooming skilled to (I) Upper Ext. Strength/Use: Pt will improve BUE MMT to 12/22 Short Term Goals Days: 10 Mobility for ADL's: Pt will functionally transfer to commode with supv A and AE PRN Safety Awareness: Pt will imrpove safety awareness to F+ for ADL self care skills Dressing: Pt will improve LB dressing to supv A Bathing: Pt will improve bathing to supv A Grooming: Pt will be improve grooming skilled to set up A Upper Ext. Strength/Use: Pt will improve BUE MMT to 11/22 - PATIENT GOALS Patient/Family Goals: "to get to where I can dress myself" Goals Discussed with Patient/Family: Yes Rehabilitation Potential: Good to meet OT stated goals Justification for Potential: To facilitate highest level of (I) with G safety upon d/c Weakness and Barriers: None - PLAN Suggested Treatment Plan: Therapeutic Activity, Self Care Training, Neuro Re- education, Therapeutic Ex with HEP, Patient Education, Family Education - FREQUENCY AND DURATION PT: - OT: 5x a week x 20 days Expected Continuation of Care at Discharge: Home Health
[2023-07-03] MEDS: ZOCOR TAB 40 MG PO SCH (20:38)
[2023-07-03] MEDS: FLOMAX PO SCH (20:38)
[2023-07-04 05:29] LABS: BASOPHILS % (AUTO) 0.1 % (0.2-1.0); EOSINOPHILS # (AUTO) 0.1 x10^3/uL (0.0-0.2); EOSINOPHILS % (AUTO) 2.5 % (0.9-2.9); HEMATOCRIT 29.4 % (42.0-54.0); HEMOGLOBIN 9.9 g/dL (13.5-18.0); LYMPHOCYTES # (AUTO) 0.4 X10^3/uL (1.3-2.9); LYMPHOCYTES % (AUTO) 13.7 % (21.0-51.0); MEAN CORPUSCULAR HEMOGLOBIN 31.6 pg (27.0-34.0); MEAN CORPUSCULAR HGB CONC 33.6 g/dL (33.0-35.0); MEAN CORPUSCULAR VOLUME 94.1 fL (80.0-100.0); MEAN PLATELET VOLUME 6.6 fL (7.4-11.0); MONOCYTES # (AUTO) 0.3 x10^3/uL (0.3-0.8); MONOCYTES % (AUTO) 10.2 % (0.0-13.0); NEUTROPHILS # (AUTO) 2.2 x10^3/uL (2.2-4.8); NEUTROPHILS % (AUTO) 73.5 % (42.0-75.0); PLATELET COUNT 98 X10^3/uL (150.0-450.0); RED BLOOD COUNT 3.12 X10^6/uL (4.7-6.0); RED CELL DISTRIBUTION WIDTH 16.4 % (11.6-16.5)
[2023-07-04 05:39] LABS: ALANINE AMINOTRANSFERASE 20 Units/L (12-78); ALBUMIN 2.6 g/dL (3.4-5.0); ALKALINE PHOSPHATASE 58 Units/L (46-116); ASPARTATE AMINO TRANSFERASE 29 Units/L (15-37); BLOOD UREA NITROGEN 14 mg/dL (7-18); CALCIUM 7.3 mg/dL (8.5-10.1); CHLORIDE 102 mmol/L (98-107); COR CA(FOR HYPOALB) 8.4 mg/dL (8.5-10.1); CREATININE 0.79 mg/dL (0.70-1.30); GLUCOSE 81 mg/dL (65-99); POTASSIUM 3.8 mmol/L (3.5-5.1); SODIUM 137 mmol/L (136-145); eGFR NON BLACK RACES > 60 (>60)
[2023-07-04] MEDS ORDERED: CONSULT PHARMACY - POTASSIUM & MAGNESIUM XX SCH ×2 (06:00→08:00)
[2023-07-04] MEDS ORDERED: K-DUR TAB 20 MEQ PO SCH (06:00)
[2023-07-04] MEDS: NAMENDA TAB 10 MG PO SCH ×2 (09:49→20:57)
[2023-07-04] MEDS: MAG-OX TAB PO SCH ×2 (09:49→20:56)
[2023-07-04] MEDS: ABILIFY PO SCH (09:49)
[2023-07-04] MEDS: FERROUS GLUCONATE PO SCH (09:49)
[2023-07-04] MEDS: COLACE SYRUP 100 MG UDC PO SCH ×2 (09:49→20:56)
[2023-07-04] MEDS: DITROPAN TAB 5 MG PO SCH (09:49)
[2023-07-04] MEDS: ZOLOFT PO SCH (09:50)
[2023-07-04] MEDS: PROTONIX TAB 40 MG PO SCH ×2 (09:50→20:57)
[2023-07-04] MEDS: ARTIFICIAL TEARS DROPS AFFEYE SCH ×2 (13:41→20:56)
--- NOTE | 2023-07-04 18:19 | PCM.PROG ---
Progress Note Progress Note for Day of Date of Exam: 07/04/23 Subjective Subjective: PT IS 83 WM, CURRENTLY SWING BED THERAPY PATIENT FOLLOWING ACUTE ILLNESS WITH GI BLEED, WHICH HAS RESOLVED. PT HGB 9.9 THIS MORNING. PT REPORTS HE HAS HAD IMPROVING APPETITE. PT REPORTS CONTINUED WEAKNESS. PT DENIES ANY CHEST PAIN OR SOB. PLAN TO CONTINUE ROUTINE LABS AND REHAB THERAPY. HOME MEDICATIONS FOR CHRONIC DISEASE MANAGEMENT HAVE BEEN CONTINUED. Past Medical Family Social History Allergies: Allergies No Known Allergies Allergy (Verified 06/26/23 22:29) Vital Signs and I&O's Intake and Output: Intake & Output 07/02/23 07/03/23 07/04/23 07/05/23 11:59 11:59 11:59 11:59 Intake Total 501 / 501 1060 / 1060 740 / 740 Output Total 2400 / 2400 1400 / 1400 500 / 500 Balance -1899 / -1899 -340 / -340 240 / 240 Physical Exam Oriented: Person and Place Eyes: Redness (LOWER LID) Nose: Normal Throat: Normal Respiratory: Diminished Cardiovascular: Other (PACEMAKER PRESENT) Auscultation: Bowel Sounds: Normal Palpation: Normal Tenderness: Normal Skin: Decreased Turgur Musculoskeletal: Leg and Motor Deficit Affect: Normal Speech Pattern: Clear and Appropriate Laboratory and Diagnostics 07/04/23 04:47 07/04/23 04:47 Labs: Laboratory WBC 3.0 X10^3/uL (3.6-10.0) L 07/04/23 04:47 RBC 3.12 X10^6/uL (4.7-6.0) L 07/04/23 04:47 Hgb 9.9 g/dL (13.5-18.0) L 07/04/23 04:47 Hct 29.4 % (42.0-54.0) L 07/04/23 04:47 MCV 94.1 fL (80.0-100.0) 07/04/23 04:47 MCH 31.6 pg (27.0-34.0) 07/04/23 04:47 MCHC 33.6 g/dL (33.0-35.0) 07/04/23 04:47 RDW 16.4 % (11.6-16.5) 07/04/23 04:47 Plt Count 98 X10^3/uL (150.0-450.0) L 07/04/23 04:47 MPV 6.6 fL (7.4-11.0) L 07/04/23 04:47 Neut % (Auto) 73.5 % (42.0-75.0) 07/04/23 04:47 Lymph % (Auto) 13.7 % (21.0-51.0) L 07/04/23 04:47 [place] % (Auto) 10.2 % (0.0-13.0) 07/04/23 04:47 Eos % (Auto) 2.5 % (0.9-2.9) 07/04/23 04:47 Baso % (Auto) 0.1 % (0.2-1.0) L 07/04/23 04:47 Neut # (Auto) 2.2 x10^3/uL (2.2-4.8) 07/04/23 04:47 Lymph # (Auto) 0.4 X10^3/uL (1.3-2.9) L 07/04/23 04:47 [place] # (Auto) 0.3 x10^3/uL (0.3-0.8) 07/04/23 04:47 Eos # (Auto) 0.1 x10^3/uL (0.0-0.2) 07/04/23 04:47 Baso # (Auto) 0.0 X10^3/uL (0.0-0.1) 07/04/23 04:47 Absolute Nucleated RBC 0.0 /100WBC 07/04/23 04:47 Sodium 137 mmol/L (136-145) 07/04/23 04:47 Corrected Sodium TNP 07/04/23 04:47 Potassium 3.8 mmol/L (3.5-5.1) 07/04/23 04:47 Chloride 102 mmol/L (98-107) 07/04/23 04:47 Carbon Dioxide 29.0 mmol/L (21-32) 07/04/23 04:47 BUN 14 mg/dL (7-18) 07/04/23 04:47 Creatinine 0.79 mg/dL (0.70-1.30) 07/04/23 04:47 Est GFR (MDRD) Af Amer > 60 (>60) 07/04/23 04:47 Est GFR (MDRD) Non-Af > 60 (>60) 07/04/23 04:47 Glucose 81 mg/dL (65-99) 07/04/23 04:47 Calcium 7.3 mg/dL (8.5-10.1) L 07/04/23 04:47 Corrected Calcium 8.4 mg/dL (8.5-10.1) L 07/04/23 04:47 Magnesium 1.8 mg/dL (2.0-2.9) L 07/04/23 04:47 Total Bilirubin 0.50 mg/dL (0.2-1.0) 07/04/23 04:47 AST 29 Units/L (15-37) 07/04/23 04:47 ALT 20 Units/L (12-78) 07/04/23 04:47 Alkaline Phosphatase 58 Units/L (46-116) 07/04/23 04:47 Total Protein 5.0 g/dL (6.4-8.2) L 07/04/23 04:47 Albumin 2.6 g/dL (3.4-5.0) L 07/04/23 04:47 Globulin 2.4 g/dL (2.5-4.5) L 07/04/23 04:47 Albumin/Globulin Ratio 1.1 Ratio (1.1-2.1) 07/04/23 04:47 Plan (1) Weakness: Status: Acute Narrative Support Text: SWING BED STATUS FOR PHYSICAL THERAPY CONTINUE CHRONIC DISEASE MANAGEMENT ROUTINE LABS (2) Anemia: Status: Resolved Qualifiers: Anemia type: iron deficiency Iron deficiency anemia type: chronic blood loss Qualified Code(s): D50.0 - Iron deficiency anemia secondary to blood loss (chronic) (3) Dementia: Status: Chronic Qualifiers: Dementia type: Alzheimer's Alzheimer's disease onset: unspecified onset Dementia severity: unspecified severity Dementia behavioral or psychological symptom: unspecified whether behavioral, psychotic, or mood disturbance or anxiety Qualified Code(s): G30.9 - Alzheimer's disease, unspecified; F02.80 - Dementia in other diseases classified elsewhere, unspecified severity, without behavioral disturbance, psychotic disturbance, mood disturbance, and anxiety (4) Depression: Status: Chronic Qualifiers: Depression Type: major depressive disorder Major depression recurrence: recurrent Active/Remission status: remission status unspecified Qualified Code(s): F33.9 - Major depressive disorder, recurrent, unspecified (5) Hypertension: Status: Chronic Qualifiers: Hypertension type: primary hypertension Qualified Code(s): I10 - Essential (primary) hypertension (6) Hypothyroidism: Status: Chronic Qualifiers: Hypothyroidism type: acquired Qualified Code(s): E03.9 - Hypothyroidism, unspecified (7) History of prostate cancer: Status: Acute (8) Hyperlipidemia: Status: Acute Qualifiers: Hyperlipidemia type: mixed hyperlipidemia Qualified Code(s): E78.2 - Mixed hyperlipidemia
[2023-07-04] MEDS: FLOMAX PO SCH (20:56)
[2023-07-04] MEDS: ZOCOR TAB 40 MG PO SCH (20:57)
[2023-07-05] MEDS: SYNTHROID 125 mcg TAB PO SCH ×2 (05:35→19:08)
[2023-07-05] MEDS: COLACE SYRUP 100 MG UDC PO SCH ×2 (10:36→21:12)
[2023-07-05] MEDS: PROTONIX TAB 40 MG PO SCH ×2 (10:37→21:12)
[2023-07-05] MEDS: ABILIFY PO SCH (10:37)
[2023-07-05] MEDS: NAMENDA TAB 10 MG PO SCH ×2 (10:37→21:13)
[2023-07-05] MEDS: DITROPAN TAB 5 MG PO SCH (10:37)
[2023-07-05] MEDS: FERROUS GLUCONATE PO SCH (10:37)
[2023-07-05] MEDS: MAG-OX TAB PO SCH ×2 (10:38→21:12)
[2023-07-05] MEDS: ARTIFICIAL TEARS DROPS AFFEYE SCH ×2 (10:38→21:13)
[2023-07-05] MEDS: ZOLOFT PO SCH (10:38)
--- NOTE | 2023-07-05 15:47 | SP.EVAL ---
SPEECH EVALUATION - History Prescription: ST Consult Diagnosis: Anemia Precautions: Fall risk PMH: Alzheimers, Dementia, anemia, CHF, CVA, depression, GERD, HTN, prostate cancer, thyroid cancer, thryoidectomy Prior Level of Function: Independent Other, comment: Decline reported x7 weeks ago - Objective Prior level of function: Independent - Cognition Mental Status: Alert, Name, Date, Confused, Decreased Safety Awarenes Ability to Follow Directions: 2 Step Retains: Fluccuating confusion Memory Loss: Short term memory loss - Communication Status Communication Status: Verbal Automatized Sequences: Impaired Sentence Completion: Within Functional Limit Produces Sentences: Within Functional Limit - Verbal Expression Names Objects: WNL Names Body Parts: WNL - 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 Justification for potential: Evaluation only. Patient demonstrates cognition that is within functional limits for participation in PT and OT. Comments: Skilled ST services are not recommended at this time. - Discharge Plan Expected Discharge Disposition: Home (Home with .)
[2023-07-05] MEDS: FLOMAX PO SCH (21:12)
[2023-07-05] MEDS: ZOCOR TAB 40 MG PO SCH (21:12)
[2023-07-06 05:11] LABS: BASOPHILS % (AUTO) 0 % (0.2-1.0); EOSINOPHILS # (AUTO) 0.1 x10^3/uL (0.0-0.2); EOSINOPHILS % (AUTO) 2.9 % (0.9-2.9); HEMATOCRIT 29.5 % (42.0-54.0); HEMOGLOBIN 10.1 g/dL (13.5-18.0); LYMPHOCYTES # (AUTO) 0.4 X10^3/uL (1.3-2.9); LYMPHOCYTES % (AUTO) 15.2 % (21.0-51.0); MEAN CORPUSCULAR HGB CONC 34.2 g/dL (33.0-35.0); MEAN CORPUSCULAR VOLUME 93.6 fL (80.0-100.0); MEAN PLATELET VOLUME 6.4 fL (7.4-11.0); MONOCYTES # (AUTO) 0.3 x10^3/uL (0.3-0.8); MONOCYTES % (AUTO) 11.3 % (0.0-13.0); NEUTROPHILS # (AUTO) 1.8 x10^3/uL (2.2-4.8); NEUTROPHILS % (AUTO) 70.6 % (42.0-75.0); PLATELET COUNT 101 X10^3/uL (150.0-450.0); RED BLOOD COUNT 3.15 X10^6/uL (4.7-6.0); RED CELL DISTRIBUTION WIDTH 16.8 % (11.6-16.5); WHITE BLOOD COUNT 2.6 X10^3/uL (3.6-10.0)
[2023-07-06 05:21] LABS: ALANINE AMINOTRANSFERASE 20 Units/L (12-78); ALBUMIN 2.6 g/dL (3.4-5.0); ALKALINE PHOSPHATASE 62 Units/L (46-116); ASPARTATE AMINO TRANSFERASE 27 Units/L (15-37); BLOOD UREA NITROGEN 17 mg/dL (7-18); CALCIUM 7.4 mg/dL (8.5-10.1); CHLORIDE 99 mmol/L (98-107); COR CA(FOR HYPOALB) 8.5 mg/dL (8.5-10.1); CREATININE 0.76 mg/dL (0.70-1.30); GLUCOSE 89 mg/dL (65-99); POTASSIUM 3.9 mmol/L (3.5-5.1); SODIUM 133 mmol/L (136-145); TOTAL PROTEIN 5.1 g/dL (6.4-8.2); eGFR NON BLACK RACES > 60 (>60)
[2023-07-06] MEDS: SYNTHROID 125 mcg TAB PO SCH (05:32)
[2023-07-06] MEDS: COLACE SYRUP 100 MG UDC PO SCH ×2 (09:17→21:29)
[2023-07-06] MEDS: MAG-OX TAB PO SCH ×2 (09:18→21:28)
[2023-07-06] MEDS: ABILIFY PO SCH (09:18)
[2023-07-06] MEDS: FERROUS GLUCONATE PO SCH (09:18)
[2023-07-06] MEDS: ZOLOFT PO SCH (09:18)
[2023-07-06] MEDS: PROTONIX TAB 40 MG PO SCH ×2 (09:18→21:28)
[2023-07-06] MEDS: NAMENDA TAB 10 MG PO SCH ×2 (09:19→21:27)
[2023-07-06] MEDS: DITROPAN TAB 5 MG PO SCH (09:19)
[2023-07-06] MEDS: ARTIFICIAL TEARS DROPS AFFEYE SCH ×2 (09:19→22:42)
[2023-07-06] MEDS: FLOMAX PO SCH (21:26)
[2023-07-06] MEDS: ZOCOR TAB 40 MG PO SCH (21:29)
[2023-07-07] MEDS: SYNTHROID 125 mcg TAB PO SCH (05:45)
[2023-07-07] MEDS: COLACE SYRUP 100 MG UDC PO SCH ×2 (09:49→21:21)
[2023-07-07] MEDS: ABILIFY PO SCH (09:49)
[2023-07-07] MEDS: ARTIFICIAL TEARS DROPS AFFEYE SCH ×2 (09:49→21:27)
[2023-07-07] MEDS: NAMENDA TAB 10 MG PO SCH ×2 (09:49→21:22)
[2023-07-07] MEDS: MAG-OX TAB PO SCH ×2 (09:49→21:22)
[2023-07-07] MEDS: ZOLOFT PO SCH (09:49)
[2023-07-07] MEDS: PROTONIX TAB 40 MG PO SCH ×2 (09:50→21:56)
[2023-07-07] MEDS: DITROPAN TAB 5 MG PO SCH (09:50)
[2023-07-07] MEDS: FERROUS GLUCONATE PO SCH (09:50)
[2023-07-07] MEDS: FLOMAX PO SCH (21:21)
[2023-07-07] MEDS: ZOCOR TAB 40 MG PO SCH (21:22)
[2023-07-08] MEDS: SYNTHROID 125 mcg TAB PO SCH (05:32)
[2023-07-08] MEDS: COLACE SYRUP 100 MG UDC PO SCH ×2 (08:49→20:59)
[2023-07-08] MEDS: ARTIFICIAL TEARS DROPS AFFEYE SCH ×2 (08:49→21:22)
[2023-07-08] MEDS: DITROPAN TAB 5 MG PO SCH (08:50)
[2023-07-08] MEDS: FERROUS GLUCONATE PO SCH (08:50)
[2023-07-08] MEDS: MAG-OX TAB PO SCH ×2 (08:50→20:58)
[2023-07-08] MEDS: PROTONIX TAB 40 MG PO SCH ×2 (08:50→20:58)
[2023-07-08] MEDS: ABILIFY PO SCH (08:50)
[2023-07-08] MEDS: ZOLOFT PO SCH (08:51)
[2023-07-08] MEDS: NAMENDA TAB 10 MG PO SCH ×2 (08:52→20:58)
[2023-07-08] MEDS: FLOMAX PO SCH (20:59)
[2023-07-08] MEDS: ZOCOR TAB 40 MG PO SCH (20:59)
[2023-07-09 05:26] LABS: BASOPHILS % (AUTO) 0.1 % (0.2-1.0); EOSINOPHILS # (AUTO) 0.1 x10^3/uL (0.0-0.2); EOSINOPHILS % (AUTO) 2.3 % (0.9-2.9); HEMATOCRIT 31.2 % (42.0-54.0); HEMOGLOBIN 10.6 g/dL (13.5-18.0); LYMPHOCYTES # (AUTO) 0.4 X10^3/uL (1.3-2.9); LYMPHOCYTES % (AUTO) 14.1 % (21.0-51.0); MEAN CORPUSCULAR HEMOGLOBIN 31.8 pg (27.0-34.0); MEAN CORPUSCULAR HGB CONC 33.9 g/dL (33.0-35.0); MEAN CORPUSCULAR VOLUME 93.8 fL (80.0-100.0); MEAN PLATELET VOLUME 6.4 fL (7.4-11.0); MONOCYTES # (AUTO) 0.3 x10^3/uL (0.3-0.8); MONOCYTES % (AUTO) 12.2 % (0.0-13.0); NEUTROPHILS # (AUTO) 1.9 x10^3/uL (2.2-4.8); NEUTROPHILS % (AUTO) 71.3 % (42.0-75.0); PLATELET COUNT 111 X10^3/uL (150.0-450.0); RED BLOOD COUNT 3.32 X10^6/uL (4.7-6.0); RED CELL DISTRIBUTION WIDTH 16.9 % (11.6-16.5); WHITE BLOOD COUNT 2.7 X10^3/uL (3.6-10.0)
[2023-07-09] MEDS: SYNTHROID 125 mcg TAB PO SCH (05:32)
[2023-07-09 05:41] LABS: ALANINE AMINOTRANSFERASE 21 Units/L (12-78); ALBUMIN 2.8 g/dL (3.4-5.0); ALKALINE PHOSPHATASE 63 Units/L (46-116); ASPARTATE AMINO TRANSFERASE 28 Units/L (15-37); BLOOD UREA NITROGEN 16 mg/dL (7-18); CALCIUM 7.3 mg/dL (8.5-10.1); CARBON DIOXIDE 27.3 mmol/L (21-32); CHLORIDE 98 mmol/L (98-107); COR CA(FOR HYPOALB) 8.3 mg/dL (8.5-10.1); CREATININE 0.66 mg/dL (0.70-1.30); GLUCOSE 87 mg/dL (65-99); POTASSIUM 3.9 mmol/L (3.5-5.1); SODIUM 131 mmol/L (136-145); TOTAL PROTEIN 5.3 g/dL (6.4-8.2); eGFR NON BLACK RACES > 60 (>60)
[2023-07-09] MEDS: ABILIFY PO SCH (10:06)
[2023-07-09] MEDS: MAG-OX TAB PO SCH ×2 (10:06→20:04)
[2023-07-09] MEDS: COLACE SYRUP 100 MG UDC PO SCH ×2 (10:06→20:03)
[2023-07-09] MEDS: PROTONIX TAB 40 MG PO SCH ×2 (10:07→20:04)
[2023-07-09] MEDS: ARTIFICIAL TEARS DROPS AFFEYE SCH ×2 (10:07→20:42)
[2023-07-09] MEDS: NAMENDA TAB 10 MG PO SCH ×2 (10:07→20:04)
[2023-07-09] MEDS: ZOLOFT PO SCH (10:07)
[2023-07-09] MEDS: FERROUS GLUCONATE PO SCH (10:07)
[2023-07-09] MEDS: DITROPAN TAB 5 MG PO SCH (10:08)
[2023-07-09] MEDS: FLOMAX PO SCH (20:04)
[2023-07-09] MEDS: ZOCOR TAB 40 MG PO SCH (20:05)
[2023-07-10] MEDS: SYNTHROID 125 mcg TAB PO SCH (05:34)
[2023-07-10] MEDS: MAG-OX TAB PO SCH ×2 (09:13→21:50)
[2023-07-10] MEDS: COLACE SYRUP 100 MG UDC PO SCH ×2 (09:13→21:50)
[2023-07-10] MEDS: ZOLOFT PO SCH (09:13)
[2023-07-10] MEDS: ABILIFY PO SCH (09:14)
[2023-07-10] MEDS: NAMENDA TAB 10 MG PO SCH ×3 (09:14→22:38)
[2023-07-10] MEDS: FERROUS GLUCONATE PO SCH (09:14)
[2023-07-10] MEDS: PROTONIX TAB 40 MG PO SCH ×2 (09:14→21:51)
[2023-07-10] MEDS: DITROPAN TAB 5 MG PO SCH (09:14)
[2023-07-10] MEDS: ARTIFICIAL TEARS DROPS AFFEYE SCH ×2 (09:15→22:38)
[2023-07-10] MEDS: FLOMAX PO SCH (21:51)
[2023-07-10] MEDS: ZOCOR TAB 40 MG PO SCH (21:51)
[2023-07-11] MEDS: SYNTHROID 125 mcg TAB PO SCH (06:04)
[2023-07-11] MEDS: NAMENDA TAB 10 MG PO SCH (09:50)
[2023-07-11] MEDS: FERROUS GLUCONATE PO SCH (09:51)
[2023-07-11] MEDS: MAG-OX TAB PO SCH (09:51)
[2023-07-11] MEDS: ZOLOFT PO SCH (09:51)
[2023-07-11] MEDS: ABILIFY PO SCH (09:51)
[2023-07-11] MEDS: DITROPAN TAB 5 MG PO SCH (09:51)
[2023-07-11] MEDS: PROTONIX TAB 40 MG PO SCH (09:51)
[2023-07-11] MEDS: ARTIFICIAL TEARS DROPS AFFEYE SCH (09:52)
[2023-07-11] MEDS: COLACE SYRUP 100 MG UDC PO SCH (09:52)
[2023-07-11 10:49] VITALS: BP 111/66; PULSE 64; RESP 20; TEMP 98.4; O2SAT 97
== END 2023-07-11 10:45 | disposition home health service (06) | DRG 812 ==
LOC: ICU 11:30 → MED/SURG 14:42
PROVIDERS: ADMIT Internal Medicine; ATTEND Internal Medicine
DX: G30.9 Alzheimer's disease, unspecified; E03.8 Other specified hypothyroidism; E78.2 Mixed hyperlipidemia; F02.80 Dementia in other diseases classified elsewhere, unspecified severity, without behavioral disturbance, psychotic disturbance, mood disturbance, and anxiety; Z51.89 Encounter for other specified aftercare; F33.8 Other recurrent depressive disorders; Z95.0 Presence of cardiac pacemaker; M62.81 Muscle weakness (generalized); D50.0 Iron deficiency anemia secondary to blood loss (chronic); Z85.46 Personal history of malignant neoplasm of prostate; I10 Essential (primary) hypertension